=== PATIENT | female | born 1970 | race Caucasian/White ===

== ENCOUNTER 2020-05-09 15:30 | Emergency (ER) | payer BC, SELFPAY ==
[2020-05-09] VITALS (8 sets, daily range): BP systolic 116–151; BP diastolic 61–79; PULSE 63–98; RESP 16–30; TEMP 36.5; O2SAT 90–99; BMI 59.1
--- NOTE | 2020-05-09 16:27 | XR_ITS ---
WS: [id number] PORTABLE CHEST HISTORY: SOB, cough, COVID+ COMPARISON: 06/07/2018 and 05/09/2020 CT. Diffuse bilateral haziness and increasing opacifications. Slightly greater throughout the RIGHT lung and in the RIGHT lower lobe as compared to the prior study. No pleural effusion or pneumothorax. Cardiac size: Normal. Mediastinum/Aorta: Normal mediastinum. No osseous abnormality seen. XR/XR chest 1V portable [id number] IMPRESSION: Moderate diffuse interstitial thickening and opacifications greatest throughout the RIGHT lung. Consistent with history of Covid 19.
[2020-05-09 16:47] LABS: Basophils % 0.2 %; Hemoglobin 10.3 g/dL (11.5-15.3); Lymphocytes # 0.7 10^3/uL (0.8-4.8); Lymphocytes % 16.8 %; Mean Corpuscular HGB Conc 30.3 g/dL (30.0-36.0); Mean Corpuscular Volume 79.3 fL (81-99); Mean Platelet Volume 10.5 fL (7.4-10.4); Monocytes # 0.2 10^3/uL (0.2-0.9); Monocytes % 3.5 %; Neutrophils # 3.38 10^3/uL (1.8-7.7); Neutrophils % 78.8 %; Nucleated Red Blood Cells % 0 %; Platelet Count 274 10^3/cmm (130-400); Red Blood Count 4.29 10^6/uL (4.1-5.3); Red Cell Distribution Width 15.4 % (12.1-15.1); White Blood Count 4.3 10^3/uL (4.0-10.0)
[2020-05-09 17:10] LABS: Lactic Sepsis W/Reflex 0.7 mmol/L (0.5-2.2)
[2020-05-09 17:31] LABS: Alanine Aminotransferase 50 U/L (0-33); Albumin Level 3.3 g/dL (3.5-5.2); Alkaline Phosphatase 82 IU/L (35-105); Anion Gap 15.3 (5-19); Aspartate Amino Transferase 66 U/L (0-32); Blood Urea Nitrogen 8 mg/dL (6-20); C Reactive Protein 183.2 mg/L (0.0-4.9); Calcium 8.1 mg/dL (8.5-10.5); Carbon Dioxide 30 mmol/L (22-29); Chloride 94 mmol/L (98-107); Creatine Phosphokinase 179 U/L (26-192); Glomerular Filtration Rate 89.3 mL/min (90-130); Glucose 99 mg/dL (65-115); Osmolality Calculated 280 mOsm/kg (285-295); Potassium 3.3 mmol/L (3.5-5.1); Sodium 136 mmol/L (136-145); Total Bilirubin 0.3 mg/dL (0.15-1.2); Total Protein 7.3 g/dL (6.6-8.7)
[2020-05-09 17:52] LABS: INR 1.07 (0.8-1.2)
[2020-05-09 17:55] LABS: D Dimer 1.75 ug/mIFEU (0-0.59)
--- NOTE | 2020-05-09 17:58 | CTR_ITS ---
PROCEDURE INFORMATION: Exam: CT Angiography Chest With Contrast Exam date and time: 05/09/2020 7:07 PM Age: 50 years old Clinical indication: Shortness of breath; Additional info: Covid +, SOB TECHNIQUE: Imaging protocol: Computed tomographic angiography of the chest with contrast. 3D rendering (Not supervised by radiologist): MIP and/or 3D reconstructed images were created by the technologist. Radiation optimization: All CT scans at this facility use at least one of these dose optimization techniques: automated exposure control; mA and/or kV adjustment per patient size (includes targeted exams where dose is matched to clinical indication); or iterative reconstruction. Contrast material: OMNI 350; Contrast volume: 72 ml; Contrast route: INTRAVENOUS (IV); COMPARISON: CT chest wo con [id number] 12/25/2017 12:50 PM RADIATION DOSE METRICS: Total DLP (mGy-cm): 973.06 FINDINGS: Pulmonary arteries: Pulmonary artery evaluation is only diagnostic through the very proximal segmental pulmonary artery level secondary to quantum mottling artifact from large body habitus as well as suboptimal contrast bolus timing. Within the limitations of this examination, no pulmonary embolism is identified. Aorta: Unremarkable. No aortic aneurysm. No aortic dissection. Lungs: Patchy scattered irregular ground-glass opacities throughout both lungs. No focal obstructing endobronchial lesion. Scattered areas of mild septal thickening throughout the lungs noted. Pleural spaces: Unremarkable. No pneumothorax. No pleural effusion. Heart: Unremarkable. No cardiomegaly. No pericardial effusion. Lymph nodes: Unremarkable. No enlarged lymph nodes. Bones/joints: Unremarkable. No acute fracture. Soft tissues: Unremarkable. CT/CT angio chest PE protcl [id number] IMPRESSION: 1. Negative for pulmonary embolism. 2. Extensive ground-glass airspace disease in both lungs. 3. Imaging features can be seen with COVID-19 pneumonia, though are nonspecific and can occur with a variety of infectious and noninfectious processes. (Reference: Jim) REFERENCES: Jim Alicia, et al., Radiological Society of [place] Expert Consensus Statement on Reporting Chest CT Findings Related to COVID-19. Endorsed by the Society of Thoracic Radiology, the [employer], and RSNA. Published June 07, 2019. Radiation Dose CTDIVOL = (mGy): DLP = 973.06 (mGy-cm)
[2020-05-09 18:03] LABS: Ferritin 204 ng/mL (15-150)
[2020-05-09 18:18] LABS: Fibrinogen 731 mg/dL (174-498)
[2020-05-09] MEDS: iohexol 350 mg/mL 100 mL Btl IV (19:10)
--- NOTE | 2020-05-09 19:47 | ED_ITS ---
HPI - COVID General: Chief Complaint: COVID symptoms Stated Complaint: COVID complications Time Seen by Provider: 05/09/20 16:01 Source: patient Mode of arrival: ambulatory Limitations: no limitations Triage information: Has fever, cough or shortness of breath . Exposure to COVID + person last 14 days History of Present Illness: HPI Narrative: Patient is a 50-year-old female who has been feeling unwell for about 10 days now and got tested for Covid 4 days ago. Her Covid test came back positive. She is expressing worsening shortness of breath and generalized weakness. She still is running a fever intermittently, highest temperature that she has recorded is 101. She denies any nausea or vomiting. She is here to be evaluated. On arrival her oxygen saturations were in the high 80s and she was placed on 3 L of oxygen via nasal cannula to maintain her saturation above 90%. MD complaint: known COVID positive Prior covid testing: yes, results known COVID 19 common symptoms: positive fever(s), chills, cough, dyspnea, fatigue and body aches; negative headache(s), loss of sense of smell and/or taste, throat pain, nasal congestion, nausea, vomiting or diarrhea COVID 19 other sytmptoms: positive requiring oxygen; negative chest pressure, chest pain, pleuritic pain, respiratory distress, cyanosis, lethargy, confusion or new neurological complaints Onset (ago): day(s) (10) Severity: moderate Pertinent comorbid conditions: obesity COVID Results: No Data to Display Review of Systems General: Reports: 10 or more systems reviewed and unremarkable except in HPI and below Const: Reports: fever(s), chills, body aches and fatigue Eyes: Denies: change in vision or blurry vision ENMT: Denies: throat pain or nasal congestion Card: Denies: chest pain Resp: Reports: dyspnea GI: Denies: nausea, vomiting or diarrhea : Denies: flank pain, difficulty voiding, dysuria, urinary frequency, urinary urgency or urinary hesitancy Musc: Denies: neck pain, back pain or extremity swelling Skin/Breast: Denies: rash, pruritus or erythema Neuro: Denies: headache(s) or confusion Endo: Denies: polyuria, polydipsia or tired all the time PFS ED PFSH: Social History Smoking and tobacco status: never smoked Physical Exam Const: COMMON NORMALS: no acute distress, average body habitus, patient oriented x3, no limitations, healthy appearing, alert and well nourished HENMT: COMMON NORMALS: normocephalic, atraumatic and moist oral mucous membranes HEAD & SCALP: normocephalic and atraumatic Eye: COMMON NORMALS: Equal, round and reactive pupils present, EOMs intact bilaterally, conjunctivae normal and no scleral icterus CONJUNCTIVA: Yes conjunctivae normal PUPIL: Yes Equal, round and reactive pupils present Neck/C-Spine: COMMON NORMALS: no meningeal signs and no JVD Resp: COMMON NORMALS: normal respiratory effort, No retractions, No use of accessory muscles, clear to auscultation bilaterally and percussion normal AUSCULTATION: clear to auscultation bilaterally PERCUSSION: percussion normal Cardio: COMMON NORMALS: no JVD, regular rate, regular rhythm, S1 normal heart sound present, S2 normal heart sound present, No gallops present (Cardio), No clicks present (Cardio), No murmurs present (Cardio), No rub (Cardio) and Peripheral pulses 2+ throughout RATE: regular rate RHYTHM: regular rhythm HEART SOUNDS: S1 normal heart sound present and S2 normal heart sound present PERIPHERAL PULSES: Peripheral pulses 2+ throughout GI: COMMON NORMALS: Normal to inspection, nondistended, normoactive bowel sounds present, Soft to palpation, non-tender, No hepatosplenomegaly present, no masses and no bruits PALPATION: Yes Soft to palpation and Yes No hepatosplenomegaly present Extremity: COMMON NORMALS: normal to inspection, full ROM, capillary refill normal, no calf tenderness and no pedal edema Neuro: COMMON NORMALS: patient oriented x3 SENSORIUM/ORIENTATION: Yes alert MENINGEAL SIGNS: Yes no meningeal signs Skin: COMMON NORMALS: no rashes or lesions noted, no wounds, turgor normal, no jaundice, no petechiae and no mottling GENERAL SKIN EXAM: no rashes or lesions noted and turgor normal Course Vital Signs: Vital signs: Vital Signs Temperature 97.7 F 05/09/20 15:46 Pulse Rate 95 05/09/20 21:00 Respiratory Rate 25 H 05/09/20 21:00 Blood Pressure 146/78 05/09/20 21:00 Pulse Oximetry 95 05/09/20 21:00 MDM - COVID MDM Narrative: Medical decision making narrative: This 50-year-old female patient was recently diagnosed with COVID-19. She presents to the emergency department with shortness of breath and was noted to be hypoxic on arrival. She was placed on oxygen via nasal cannula and saturated well on that. Evaluation in the ED is unremarkable with normal white cell count however she has elevated acute phase reactants. CTA of her lungs was negative for PE. She however has pneumonia on x-ray and CT scan. Since she was able to maintain a saturation on 3 L, she is discharged home on home oxygen. She is given a dose of dexamethasone in the emergency department and discharged home with oral dexamethasone. She is strongly counseled to return for worsening symptoms and is to follow-up with her primary care provider. Medical Records: Attestation: I reviewed the patient's medical records. Lab Data: Attestation: I reviewed the patient's lab results. Labs: Lab Results 05/09/20 05/09/20 05/09/20 Range/Units 16:17 16:17 16:17 WBC 4.3 (4.0-10.0) 10^3/ uL RBC 4.29 (4.1-5.3) 10^6/u L Hgb 10.3 L (11.5-15.3) g/dL Hct 34.0 L (37.0-47.0) % MCV 79.3 L (81-99) fL MCH 24.0 L (28.0-34.0) pg MCHC 30.3 (30.0-36.0) g/dL RDW 15.4 H (12.1-15.1) % Plt Count 274 (130-400) 10^3/c mm MPV 10.5 H (7.4-10.4) fL Neut % (Auto) 78.8 % Lymph % (Auto) 16.8 % [place] % (Auto) 3.5 % Eos % (Auto) 0.0 % Baso % (Auto) 0.2 % Neut # (Auto) 3.38 (1.8-7.7) 10^3/u L Lymph # (Auto) 0.7 L (0.8-4.8) 10^3/u L [place] # (Auto) 0.2 (0.2-0.9) 10^3/u L Eos # (Auto) 0.0 (0.0-0.8) 10^3/u L Baso # (Auto) 0.0 (0.0-0.1) 10^3/u L Nucleated RBC % (a uto) 0 % Nucleated RBCs # 0.0 /100WBC PT 14.30 (12.1-14.9) SECO NDS INR 1.07 (0.8-1.2) Fibrinogen 731 H (174-498) mg/dL D-Dimer 1.75 H (0-0.59) ug/mIFE U Sodium 136 (136-145) mmol/L Potassium 3.3 L (3.5-5.1) mmol/L Chloride 94 L (98-107) mmol/L Carbon Dioxide 30 H (22-29) mmol/L Anion Gap 15.3 (5-19) BUN 8 (6-20) mg/dL Creatinine 0.7 (0.5-0.9) mg/dL GFR Calculation 89.3 L (90-130) mL/min Glucose 99 (65-115) mg/dL Calculated Osmolal ity 280 L (285-295) mOsm/k g Lactic Acid (0.5-2.2) mmol/L Calcium 8.1 L (8.5-10.5) mg/dL Ferritin 204 H (15-150) ng/mL Total Bilirubin 0.3 (0.15-1.2) mg/dL AST 66 H (0-32) U/L ALT 50 H (0-33) U/L Alkaline Phosphata se 82 (35-105) IU/L Creatine Kinase 179 (26-192) U/L C-Reactive Protein 183.2 H (0.0-4.9) mg/L Total Protein 7.3 (6.6-8.7) g/dL Albumin 3.3 L (3.5-5.2) g/dL Globulin 4.0 (1.3-4.6) g/dL Procalcitonin 0.10 (0-0.5) ng/mL 05/09/ Range/Units 16:17 WBC (4.0-10.0) 10^3/ uL RBC (4.1-5.3) 10^6/u L Hgb (11.5-15.3) g/dL Hct (37.0-47.0) % MCV (81-99) fL MCH (28.0-34.0) pg MCHC (30.0-36.0) g/dL RDW (12.1-15.1) % Plt Count (130-400) 10^3/c mm MPV (7.4-10.4) fL Neut % (Auto) % Lymph % (Auto) % [place] % (Auto) % Eos % (Auto) % Baso % (Auto) % Neut # (Auto) (1.8-7.7) 10^3/u L Lymph # (Auto) (0.8-4.8) 10^3/u L [place] # (Auto) (0.2-0.9) 10^3/u L Eos # (Auto) (0.0-0.8) 10^3/u L Baso # (Auto) (0.0-0.1) 10^3/u L Nucleated RBC % (a uto) % Nucleated RBCs # /100WBC PT (12.1-14.9) SECO NDS INR (0.8-1.2) Fibrinogen (174-498) mg/dL D-Dimer (0-0.59) ug/mIFE U Sodium (136-145) mmol/L Potassium (3.5-5.1) mmol/L Chloride (98-107) mmol/L Carbon Dioxide (22-29) mmol/L Anion Gap (5-19) BUN (6-20) mg/dL Creatinine (0.5-0.9) mg/dL GFR Calculation (90-130) mL/min Glucose (65-115) mg/dL Calculated Osmolal ity (285-295) mOsm/k g Lactic Acid 0.7 (0.5-2.2) mmol/L Calcium (8.5-10.5) mg/dL Ferritin (15-150) ng/mL Total Bilirubin (0.15-1.2) mg/dL AST (0-32) U/L ALT (0-33) U/L Alkaline Phosphata se (35-105) IU/L Creatine Kinase (26-192) U/L C-Reactive Protein (0.0-4.9) mg/L Total Protein (6.6-8.7) g/dL Albumin (3.5-5.2) g/dL Globulin (1.3-4.6) g/dL Procalcitonin (0-0.5) ng/mL Imaging Data: CTA Chest: Attestation: I personally reviewed and interpreted this imaging study as follows: Radiologist's impression: [address] [address] [address] Scan Report Signed Patient: Queenie Tapia #: [id number] : 1970Acct#:[id number] Age/Sex: 50 / FADM Date: 05/09/20 Loc: ERRoom/Bed: Attending Dr: Ordering Provider/Ordering MD: Frances Duran [place] [facility] [place] of Service: 05/09/20 Procedure(s): CT angio chest PE [facility] [address] Accession Number(s): [id number] Report Number: [id number] PROCEDURE INFORMATION: Exam: CT Angiography Chest With Contrast Exam date and time: 05/09/2020 7:07 PM Age: 50 years old Clinical indication: Shortness of breath; Additional info: Covid +, SOB TECHNIQUE: Imaging protocol: Computed tomographic angiography of the chest with contrast. 3D rendering (Not supervised by radiologist): MIP and/or 3D reconstructed images were created by the technologist. Radiation optimization: All CT scans at this facility use at least one of these dose optimization techniques: automated exposure control; mA and/or kV adjustment per patient size (includes targeted exams where dose is matched to clinical indication); or iterative reconstruction. Contrast material: OMNI 350; Contrast volume: 72 ml; Contrast route: INTRAVENOUS (IV); COMPARISON: CT chest [facility] [id number] 12/25/2017 12:50 PM RADIATION DOSE METRICS: Total DLP (mGy-cm): 973.06 FINDINGS: Pulmonary arteries: Pulmonary artery evaluation is only diagnostic through the very proximal segmental pulmonary artery level secondary to quantum mottling artifact from large body habitus as well as suboptimal contrast bolus timing. Within the limitations of this examination, no pulmonary embolism is identified. Aorta: Unremarkable. No aortic aneurysm. No aortic dissection. Lungs: Patchy scattered irregular ground-glass opacities throughout both lungs. No focal obstructing endobronchial lesion. Scattered areas of mild septal thickening throughout the lungs noted. Pleural spaces: Unremarkable. No pneumothorax. No pleural effusion. Heart: Unremarkable. No cardiomegaly. No pericardial effusion. Lymph nodes: Unremarkable. No enlarged lymph nodes. Bones/joints: Unremarkable. No acute fracture. Soft tissues: Unremarkable. CT/CT angio chest PE protcl [id number] IMPRESSION: 1. Negative for pulmonary embolism. 2. Extensive ground-glass airspace disease in both lungs. 3. Imaging features can be seen with COVID-19 pneumonia, though are nonspecific and can occur with a variety of infectious and noninfectious processes. (Reference: Jim) REFERENCES: Jim Alicia, et al., Radiological Society of [place] Expert Consensus Statement on Reporting Chest CT Findings Related to COVID-19. Endorsed by the Society of Thoracic Radiology, the [employer], and RSNA. Published June 07, 2019. Radiation Dose CTDIVOL = (mGy): DLP = 973.06 (mGy-cm) Dictated By:Andrew Deluca Signed By:Ingrid Deluca Date/Time:05/09/201924 DD/ 23 COVID Results: No Data to Display Monoclonal Antibody Treatments Inclusion/Exclusion Criteria weight >/= 40 kg and + direct Sars-Cov-2 test less than 7-10 days ago BMI >/= 35 not requiring hospitalization and needs oxygen (DO NOT GIVE) Plan for treatment Does not meet criteria (DO NOT GIVE) Discharge Plan Discharge Patient Disposition: Home Clinical Impression: Pneumonia due to 2019 novel coronavirus, Hypoxia Condition: Stable Prescriptions: New dexamethasone 6 mg tablet 6 mg PO DAILY Qty: 9 RF: 0 azithromycin 250 mg tablet See Rx Instructions .ROUTE .COMPLEX Qty: 6 RF: 0 Continued multivitamin Tablet 1 tab PO DAILY RF: 0 promethazine-DM 6.25-15 mg/5 mL syrup 5 - 10 ml PO Q6H RF: 0 Tylenol 325 mg Tablet 325 mg PO QID PRN (Reason: Pain) RF: 0 Vitamin C 500 mg Tablet 500 mg PO DAILY RF: 0 ibuprofen 200 mg Tablet 200 - 400 mg PO Q6H PRN (Reason: Pain) RF: 0 cetirizine 1 tab PO DAILY RF: 0 famotidine 20 mg PO DAILY RF: 0 Discharge Orders: Discharge ED (Routine); Ordered 05/09/20 Ordered By: Frances Duran Other Ambulatory Orders: DME: Oxygen (Order) Location: None Selected Ordered By: Frances Duran Discharge Diet: Usual diet Discharge Activity: Increase activity as tolerated Patient Instructions: Viral Pneumonia (ED) Activity Restrictions/Additional Instructions: Return for any new or worsening symptoms. Follow-up with your primary care provider within 3 days via telemedicine. Take the medications as prescribed. Use the oxygen all the time. If your oxygen levels fall below 90% even while on oxygen please return for evaluation. Coding Level of Care Code ED Slate Roofer Helper for Ej Edward
[2020-05-09] MEDS: cefTRIAXone 1,000 MG in sodium chloride 0.9% (plus) 50 ML 100 MG IV (19:55)
[2020-05-09] MEDS: dexamethasone 4 mg/mL INJ 6 MG IVP (19:56)
== END 2020-05-09 21:29 | disposition home or self-care (01) ==
PROVIDERS: Emergency Provider Family Medicine
DX: U07.1 COVID-19 (principal); J12.82 Pneumonia due to coronavirus disease 2019; R09.02 Hypoxemia
CPT/HCPCS: 36415; 71045; 71275; 80053; 82550; 82728; 83605; 84145; 85025; 85378; 85384; 85610; 86140; 87040; 87205; 96365; 96375; 99284; J0696; J1100; Q9967

== ENCOUNTER → 2020-06-14 08:46 | Outpatient (BNVA) | payer OTHER, SELFPAY | PROVIDERS: PCP Family Medicine; Visit Provider Family Medicine | DX: J12.89 Other viral pneumonia (principal); U07.1 COVID-19 | CPT/HCPCS: 71046; 80053; 85025 ==

== ENCOUNTER → 2020-07-25 08:31 | Outpatient (BNVA) | payer BC, SELFPAY | PROVIDERS: PCP Family Medicine; Visit Provider Family Medicine | DX: Z13.6 Encounter for screening for cardiovascular disorders (principal); R63.5 Abnormal weight gain | CPT/HCPCS: 80053; 80061; 83036; 84443 ==

== ENCOUNTER → 2020-08-02 10:07 | Outpatient (BNVA) | payer BC, SELFPAY | PROVIDERS: PCP Family Medicine; Visit Provider Family Medicine | DX: I10 Essential (primary) hypertension (principal); Z01.419 Encounter for gynecological examination (general) (routine) without abnormal findings; Z13.6 Encounter for screening for cardiovascular disorders; R73.03 Prediabetes; Z68.43 Body mass index [BMI] 50.0-59.9, adult | CPT/HCPCS: 80048; 88175 ==

== ENCOUNTER 2020-08-07 20:00 | Outpatient (CLI) | payer BC, SELFPAY | END 2020-08-07 20:01 | disposition home or self-care (01) | LOC: SLEEP 08-08 09:32 | PROVIDERS: PCP Family Medicine; Visit Provider Family Medicine | DX: R06.83 Snoring (principal); R53.83 Other fatigue; G47.33 Obstructive sleep apnea (adult) (pediatric) | CPT/HCPCS: 95810 ==

== ENCOUNTER → 2020-09-06 11:24 | Outpatient (BNVA) | payer BC, SELFPAY | PROVIDERS: PCP Family Medicine; Visit Provider Family Medicine | DX: G47.33 Obstructive sleep apnea (adult) (pediatric) (principal); R60.0 Localized edema; I10 Essential (primary) hypertension; Z68.43 Body mass index [BMI] 50.0-59.9, adult | CPT/HCPCS: 80048 ==

== ENCOUNTER 2020-09-11 07:42 | Outpatient (CLI) | payer BC, SELFPAY ==
--- NOTE | 2020-09-11 08:00 | MM_ITS ---
WS: [id number] BILATERAL SCREENING DIGITAL MAMMOGRAM WITH CAD HISTORY: screening mammogram COMPARISON: None available. Bilateral CC and MLO views submitted. Computer aided detection analyzed. Breast composition: There are scattered areas of fibroglandular density. No suspicious masses, microc alcifications or architectural distortion. There are a few scattered benign calcifications within eac h breast. MM/[place] [id number] IMPRESSION: BI-RADS: 2-Benign FOLLOW UP: 1 Year Follow-up
== END 2020-09-11 07:43 | disposition home or self-care (01) ==
LOC: RADSHAW 07:46
PROVIDERS: PCP Family Medicine; Visit Provider Family Medicine
DX: Z12.31 Encounter for screening mammogram for malignant neoplasm of breast (principal)
CPT/HCPCS: 77067

== ENCOUNTER → 2020-10-28 10:11 | Outpatient (BNVA) | payer BC, SELFPAY | PROVIDERS: PCP Family Medicine; Visit Provider Nurse Practitioner Family | DX: J06.9 Acute upper respiratory infection, unspecified (principal); Z20.822 Contact with and (suspected) exposure to COVID-19; R43.0 Anosmia | CPT/HCPCS: 87635 ==

== ENCOUNTER → 2020-11-08 09:51 | Outpatient (BNVA) | payer BC, SELFPAY | PROVIDERS: PCP Family Medicine; Visit Provider Family Medicine | DX: N92.0 Excessive and frequent menstruation with regular cycle (principal); R73.03 Prediabetes | CPT/HCPCS: 80053; 83036 ==

== ENCOUNTER → 2020-12-10 16:07 | Outpatient (BNVA) | payer BC, SELFPAY | PROVIDERS: PCP Family Medicine; Visit Provider Nurse Practitioner | DX: J02.9 Acute pharyngitis, unspecified (principal) | CPT/HCPCS: 87880 ==

== ENCOUNTER → 2020-12-20 08:38 | Outpatient (BNVA) | payer BC, SELFPAY | PROVIDERS: PCP Family Medicine; Visit Provider Family Medicine | DX: N92.0 Excessive and frequent menstruation with regular cycle (principal); R73.03 Prediabetes; I10 Essential (primary) hypertension | CPT/HCPCS: 82728; 83550; 85025 ==

== ENCOUNTER 2020-12-31 06:58 | Outpatient (CLI) | payer BC, SELFPAY ==
--- NOTE | 2020-12-31 07:15 | US_ITS ---
WS: [id number] ULTRASOUND PELVIS TECHNIQUE: Transabdominal and transvaginal. ULTRASOUND PELVIS TECHNIQUE: Transabdominal. CLINICAL INFORMATION: menorrhagia LMP: : No. COMPARISON: None. FINDINGS: Technically difficult examination due to body habitus Fibroid uterus. Orientation: Anteverted. Size: 10.5 cm x 7.0 cm x 5.1 cm. Masses: Multiple intramural fibroids. Cervix: Not well evaluated Endometrium: Not well evaluated due to fibroids. Adnexa: Ovaries not visualized. No adnexal masses. Free fluid: None. Other findings: None. US/US pelvic with transvaginal IMPRESSION: Technically difficult examination due to body habitus. Limited stud y. 1. Fibroid uterus measuring 10.5 x 5.1 x 7.0 CM. 2. Endometrium not well evaluated due to fibroids. 3. Neither ovary is visualized. No adnexal masses. 4. Largest fibroid measures 3.0 x 3.1 x 2.0 CM.
== END 2020-12-31 06:59 | disposition home or self-care (01) ==
PROVIDERS: PCP Family Medicine; Visit Provider Family Medicine
DX: N92.0 Excessive and frequent menstruation with regular cycle (principal); D25.9 Leiomyoma of uterus, unspecified
CPT/HCPCS: 76830; 76856

== ENCOUNTER 2021-01-22 15:33 | Day surgery (SDC) | payer BC, SELFPAY ==
--- NOTE | 2021-01-22 15:58 | XRR_ITS ---
PROCEDURE INFORMATION: Exam: XR Soft Tissue Neck Exam date and time: 01/22/2021 3:58 PM Age: 50 years old Clinical indication: Other: Fb/food; Additional info: Poss food bolus TECHNIQUE: Imaging protocol: XR of the soft tissues of the neck. Total images: 3 COMPARISON: CR Neck Soft Tissue [id number] 08/19/2014 5:56 PM FINDINGS: Airway: Motion artifact. Airway appears grossly patent. Soft tissues: Grossly unremarkable. No grossly visible radiopaque foreign body Bones/joints: Unremarkable. XR/XR soft tissue neck [id number] IMPRESSION: Grossly unremarkable. Radiation Dose CTDIVOL = (mGy): DLP = (mGy-cm)
--- NOTE | 2021-01-22 15:58 | XRR_ITS ---
PROCEDURE INFORMATION: Exam: XR Chest Exam date and time: 01/22/2021 3:58 PM Age: 50 years old Clinical indication: Other: Fb/food; Additional info: Poss food bolus TECHNIQUE: Imaging protocol: XR of the chest. Views: 1 view. Total images: 1 COMPARISON: CR XR chest 2V* [id number] 06/14/2020 8:49 AM FINDINGS: Lungs: No visible active interstitial or alveolar airspace disease. Pleural spaces: Unremarkable. No pleural effusion. No pneumothorax. Heart/Mediastinum: Cardiac structures and configuration within normal limits. Bones/joints: Unremarkable. Other findings: Obesity. XR/XR chest 1V portable [id number] IMPRESSION: Nonacute. Radiation Dose CTDIVOL = (mGy): DLP = (mGy-cm)
[2021-01-22 16:38] VITALS: BP 143/87; PULSE 98; RESP 18; TEMP 36.7; O2SAT 98; BMI 57.9
--- NOTE | 2021-01-22 17:53 | PC.NURSE ---
PATIENT PRESENTS TO THE ED WITH A CHIEF COMPLAINT OF A FOREIGN BODY IN THROAT. PATIENT STATES THAT SHE CHOKED ON HER FOOD LAST NIGHT AND STILL FEELS LIKE THEIR IS SOMETHING IN HER THROAT. PATIENT STATES THAT SHE HAS TRIED TO INGEST FOOD, BUT NOTHING STAYS DOWN. PATIENT STATES IT GETS TO THROAT AND THEN COMES BACK UP. PATIENT DOES HAVE EMESIS BASIN AT TABLE SIDE. WHITE AND CLEAR FLUID ARE IN THE CONTAINER. PATIENT PRESENTS WITH PATENT AIRWAY, UNLABORED RESPIRATIONS, AND APPROPRIATE COLOR.
--- NOTE | 2021-01-22 18:10 | ED_ITS ---
HPI - General Adult General: Chief complaint: Airway/Esophagus Foreign Body Stated complaint: STATES FOOD BOLUS Time Seen by Provider: 01/22/21 18:02 Source: patient Mode of arrival: ambulatory Limitations: no limitations History of Present Illness: HPI narrative: 50-year-old female states she was eating chicken last night states that time she does not chew well and has difficulty with food boluses. She states that she typically gets in the past but she not minimal had this 1 past 24 hours she tried drinking liquids and states she just vomits it back up still has a sensation of a foreign body in her esophagus. States she did have an EGD roughly 5 years ago denies any other issues denies vomiting any blood. Associated symptoms: Deny chest pain, dyspnea, headache(s), nausea, rash or vomiting Review of Systems Const: Denies: fever(s), chills, body aches or change in appetite Eyes: Denies: blurry vision or eye discomfort ENMT: Denies: throat pain or dental pain Card: Denies: chest pain Resp: Denies: dyspnea GI: Denies: abdominal pain, nausea, vomiting or diarrhea : Denies: dysuria Musc: Denies: neck pain or back pain Skin/Breast: Denies: rash Neuro: Denies: headache(s) Psych: Denies: depression Emre/Lymph: Denies: easy bruising All/Imm: Denies: urticaria PFSH ED PFSH: Medical History Hidradenitis suppurativa History of COVID-19 Prediabetes Surgical History H/O tubal ligation History of tonsillectomy and adenoidectomy Family History Other Cancer Glaucoma Lupus Thyroid condition Social History Smoking and tobacco status: never smoked Alcohol intake: current Alcohol intake frequency: few times a month Physical Exam Const: COMMON NORMALS: no acute distress, patient oriented x3 and healthy appearing HENMT: COMMON NORMALS: normocephalic and atraumatic HEAD & SCALP: normocephalic and atraumatic Eye: COMMON NORMALS: Equal, round and reactive pupils present and EOMs intact bilaterally PUPIL: Yes Equal, round and reactive pupils present Neck/C-Spine: COMMON NORMALS: full ROM and supple Chest: COMMONS NORMALS: normal inspection of the chest and normal palpation of entire chest wall Resp: COMMON NORMALS: normal respiratory effort, No retractions, No use of accessory muscles and clear to auscultation bilaterally AUSCULTATION: clear to auscultation bilaterally Cardio: COMMON NORMALS: regular rate, regular rhythm and No murmurs present (Cardio) RATE: regular rate RHYTHM: regular rhythm GI: COMMON NORMALS: Normal to inspection, nondistended, normoactive bowel sounds present, Soft to palpation, non-tender and no masses PALPATION: Yes Soft to palpation Extremity: COMMON NORMALS: normal to inspection and full ROM Neuro: COMMON NORMALS: patient oriented x3, moves all extremities and no focal motor deficits Psych: COMMON NORMALS: mental status grossly normal, Normal thought process present and cooperative THOUGHT PROCESS: Normal thought process present Skin: COMMON NORMALS: no rashes or lesions noted and no wounds GENERAL SKIN EXAM: no rashes or lesions noted Course Vital Signs: Vital signs: Vital Signs Temperature 98.1 F 01/22/21 16:38 Pulse Rate 98 01/22/21 16:38 Respiratory Rate 18 01/22/21 16:38 Blood Pressure 143/87 01/22/21 16:38 Pulse Oximetry 98 01/22/21 16:38 MDM - General Adult MDM Narrative: Medical decision making narrative: Patient presents here with an esophageal food bolus spoke to Dr. Goodrich is going to take to the GI lab to treat. Discharge Plan Discharge Patient Disposition: Admitted As Inpatient Clinical Impression: Esophageal obstruction due to food impaction Condition: Stable Prescriptions: No Action clindamycin phos-skin clnsr 19 1 % kit topical .QD WITH FLARES RF: 0 vitamin B complex Tablet 1 tab PO DAILY RF: 0 albuterol sulfate [Ventolin HFA] 90 mcg/actuation HFA aerosol inhaler 2 puff inhalation Q6H PRN (Reason: shortness of breath or wheezing) Qty: 8.5 RF: 0 lisinopril 10 mg tablet 10 mg PO DAILY Qty: 90 RF: 1 furosemide 20 mg tablet 20 mg PO QAM Qty: 90 RF: 1 metformin 500 mg tablet extended release 24 hr 500 mg PO DAILY Qty: 90 RF: 1 multivitamin Tablet 1 tab PO DAILY RF: 0 Tylenol 325 mg Tablet 325 mg PO QID PRN (Reason: Pain) RF: 0 Vitamin C 500 mg Tablet 500 mg PO DAILY RF: 0 ibuprofen 200 mg Tablet 200 - 400 mg PO Q6H PRN (Reason: Pain) RF: 0 famotidine 20 mg PO DAILY RF: 0 Referrals: Leona Colin DO [Primary Care Provider] - Coding Level of Care Code ED Bending Machine Set Up Operator for Ej Edward
--- NOTE | 2021-01-22 18:20 | P.HP_ITS ---
Providers/Chief Complaint Admitting Physician: Niles Goodrich MD Primary Care Provider: Leona Colin DO Chief Complaint: STATES FOOD BOLUS History of Present Illness Ms. Queenie Tapia is a pleasant 50 year old female morbidly obese patient with current weight of 317 pounds and a BMI 58, apparently the patient had dinner yesterday in the form of chicken and ham and since then she felt that something got stuck. She was able to expel portion of it but overnight and through the d ay it just got worse and she is not able to keep anything down. She denies any hematemesis or hemoptysis. She reports that she does not have dentures and she did have this problem before about 10 years ago and she was told that she has some sort of pathology in her upper esophagus. Patient comes to the ER for further work-up and she did undergo x-rays of the neck and chest that per my interpretation did not show any abnormal findings. No evidence of pneumomediastinum. General surgery was consulted for further evaluation and potential intervention. Patient was seen and evaluated in the vertical flow area of the emergency department Review of Systems General: Reports: 10 or more systems reviewed and unremarkable except in HPI and below Medications/Allergies Home Medications Medication Instructions Recorded Confirmed Last Taken Type Tylenol 325 mg PO QID PRN 05/09/20 12/20/20 05/08/20 History Vitamin C 500 mg PO DAILY 05/09/20 12/20/20 Unknown History famotidine 20 mg PO DAILY 05/09/20 12/20/20 Unknown History ibuprofen 200 - 400 mg PO Q6H PRN 05/09/20 12/20/20 05/09/20 History multivitamin 1 tab PO DAILY 05/09/20 12/20/20 Unknown History clindamycin phosphate-skin ea TOPICAL .QD WITH FLARES ea 07/11/20 12/20/20 Unknown History cleanser combo no.19 1 % topical kit furosemide 20 mg tablet 20 mg PO QAM #90 tab 09/06/20 12/20/20 Unknown Rx lisinopril 10 mg tablet 10 mg PO DAILY #90 tab 09/06/20 12/20/20 Unknown Rx metformin 500 mg tablet,extended 500 mg PO DAILY #90 tab 09/06/20 12/20/20 Unknown Rx release 24 hr albuterol sulfate 90 mcg/actuation 2 puff INHALATION Q6H PRN #8.5 g 12/10/20 12/20/20 Unknown Rx aerosol inhaler vitamin B complex 1 tab PO DAILY 12/20/20 12/20/20 Unknown History Allergies Allergy/AdvReac Type Severity Reaction Status Date / Time No Known Allergies Allergy Verified 01/22/21 18:29 PFSH Acute PFSH: Medical History Hidradenitis suppurativa History of COVID-19 Prediabetes Surgical History H/O tubal ligation History of tonsillectomy and adenoidectomy Family History Other Cancer Glaucoma Lupus Thyroid condition Social History Smoking and tobacco status: never smoked Alcohol intake: current Alcohol intake frequency: few times a month Vitals/I&O/Wt Last Vital Signs Temp 98.1 F 01/22/21 16:38 Pulse 98 01/22/21 16:38 Resp 18 01/22/21 16:38 BP 143/87 01/22/21 16:38 Pulse Ox 98 01/22/21 16:38 Weight last 48 hrs Weight 317 lb Physical Exam Const: COMMON NORMALS: no acute distress and patient oriented x3 GENERAL APPEARANCE: cooperative ORIENTATION/CONSCIOUSNESS: Yes awake, Yes oriented to person, Yes oriented to place and Yes oriented to time HENMT: COMMON NORMALS: normocephalic HEAD & SCALP: normocephalic Eye: COMMON NORMALS: Equal, round and reactive pupils present and no scleral icterus PUPIL: Yes Equal, round and reactive pupils present Neck/C-Spine: NECK IMAGES: 1. No evidence of crepitus or surgical emphysema or distinct tenderness. No mediastinal shift. Lymph: LYMPHATIC: no lymphadenopathy noted Chest: COMMONS NORMALS: normal inspection of the chest Resp: COMMON NORMALS: normal respiratory effort and clear to auscultation bilaterally AUSCULTATION: clear to auscultation bilaterally Cardio: COMMON NORMALS: S1 normal heart sound present and S2 normal heart sound present; negative for No murmurs present (Cardio) HEART SOUNDS: S1 normal heart sound present and S2 normal heart sound present GI: COMMON NORMALS: Soft to palpation; negative for No hepatosplenomegaly present INSPECTION: Yes normal to inspection PALPATION: Yes Soft to palpation, No Firmness to palpation present (GI), No Tenderness to palpation present (GI), No Guarding due to palpation present (GI), No Rigid due to palpation and No No hepatosplenomegaly present Neuro: COMMON NORMALS: patient oriented x3 SENSORIUM/ORIENTATION: Yes oriented to person, Yes oriented to place and Yes oriented to time Psych: COMMON NORMALS: mental status grossly normal Skin: COMMON NORMALS: no rashes or lesions noted GENERAL SKIN EXAM: no rashes or lesions noted A&P Assessment and plan (1) Esophageal obstruction due to food impaction: Plan of care; After thorough history and physical examination and reviewing the chart, plan to perform a diagnostic esophagogastroduodenoscopy with possible food disimpaction. I discussed with the patient in detail the risk,benefits,alternatives and indications.The risk of aspiration, bleeding, soft tissue injury, perforation of the stomach/esophagus and other potential concomitant complications were explained to the patient in details,aslo the potential need for Thoracic and or Abdominal surgery to repair any complications.The patient understood this well and did agree to proceed. Rationale was carefully and clearly discussed with the patient.Appropriate informed consent have been reviewed and signed All questions have been answered and all concerns have been addressed to patient 's satisfaction. Status: Acute Attestations Medical Necessity Statement*: Outpatient in a bed Time Spent in Patient Care: (>than 50% of time spent in counselling and/or direct pt care on unit) . 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
--- NOTE | 2021-01-22 18:34 | ANES.PREANE2 ---
Pre-Anesthetic Assessment Pre-Anesthetic Assessment: Height/Weight: Height 1.57 m Weight 143.789 kg Temp Pulse Resp BP Pulse Ox 98.1 F 98 18 143/87 98 01/22/21 16:38 01/22/21 16:38 01/22/21 16:38 01/22/21 16:38 01/22/21 16:38 Preop Diagnosis: food bolus Proposed Procedure: EGD Familial anesthetic complications: None Last intake: > 8 hrs Social: Social History: No alcohol and No tobacco Comment: former smokre Exam: Pre-Anes Outpt Exam: alert, oriented x 3, clear to auscultation bilaterally and regular rate & rhythm Airway: MP: 4 Dentition: Other (couple missing teeth) Pulmonary: Pulmonary: Sleep apnea CV/HEM: CV/HEM: HTN Metabolic: Metabolic: DM (pre-DM) and Morbid obesity Anesthetic Plan: ASA status: 3 Anesthesia: General Risk of > 500 ml blood loss (7ml/kg in children): No PFSH Anesthesia PFSH: Medical History Hidradenitis suppurativa History of COVID-19 Prediabetes Surgical History H/O tubal ligation History of tonsillectomy and adenoidectomy Family History Other Cancer Glaucoma Lupus Thyroid condition Social History Smoking and tobacco status: never smoked Alcohol intake: current Alcohol intake frequency: few times a month Data Anesthesia Cardiac Studies: No Data to Display
[2021-01-22] MEDS: sodium chloride 0.9% 1,000 ML 30 ML IV (19:01)
[2021-01-22 19:23] VITALS: BP 148/78; PULSE 84; RESP 16; TEMP 36.4; O2SAT 98
[2021-01-22 19:25] VITALS: BP 138/64; PULSE 80; RESP 16; O2SAT 100
--- NOTE | 2021-01-22 19:27 | P.PCN_ITS ---
PACU note PACU note: VSS, Good respiratory effort, report to CRYPTOZOOLOGIST Post-Anesthesia Exam: awake
--- NOTE | 2021-01-22 19:27 | PM.PACU ---
PACU note PACU note: VSS, Good respiratory effort, report to FLYING I INSTRUCTOR Post-Anesthesia Exam: awake
[2021-01-22 19:30] VITALS: BP 145/72; PULSE 80; RESP 16; TEMP 36.9; O2SAT 94
[2021-01-22 19:32] VITALS: BP 148/76; PULSE 79; RESP 17; TEMP 36.8; O2SAT 93
[2021-01-22 19:42] VITALS: BP 133/64; PULSE 77; RESP 18; O2SAT 92
== END 2021-01-22 20:05 | disposition home or self-care (01) ==
LOC: ER 18:14 → GILAB 19:32
PROVIDERS: Emergency Provider Emergency Medicine; PCP Family Medicine; Visit Provider Surgery
PROC: 0DJ08ZZ Inspection of Upper Intestinal Tract, Via Natural or Artificial Opening Endoscopic (ICD-10-PCS; CPT 43235; principal; 2021-01-22 19:00)
DX: T18.128A Food in esophagus causing other injury, initial encounter (principal); X58.XXXA Exposure to other specified factors, initial encounter; K21.00 Gastro-esophageal reflux disease with esophagitis, without bleeding; K29.70 Gastritis, unspecified, without bleeding; I10 Essential (primary) hypertension; G47.30 Sleep apnea, unspecified; R73.03 Prediabetes; E66.01 Morbid (severe) obesity due to excess calories; Z68.43 Body mass index [BMI] 50.0-59.9, adult; Z79.84 Long term (current) use of oral hypoglycemic drugs; Z87.891 Personal history of nicotine dependence; Z86.16 Personal history of COVID-19; Z80.9 Family history of malignant neoplasm, unspecified
CPT/HCPCS: 43247; 70360; 71045; 96360; J0330; J2704; J3010; J7030

== ENCOUNTER → 2021-01-31 10:25 | Outpatient (BNVA) | payer BC, SELFPAY | PROVIDERS: PCP Family Medicine; Visit Provider Obstetrics & Gynecology | DX: D25.9 Leiomyoma of uterus, unspecified (principal) | CPT/HCPCS: 88305 ==

== ENCOUNTER → 2021-04-01 08:51 | Outpatient (BNVA) | payer BC, SELFPAY | PROVIDERS: PCP Family Medicine; Visit Provider Family Medicine | DX: R73.03 Prediabetes (principal) | CPT/HCPCS: 80053; 83036 ==

== ENCOUNTER 2021-05-02 10:51 | Day surgery (SDC) | payer BC, SELFPAY ==
[2021-05-02] VITALS (10 sets, daily range): BP systolic 117–158; BP diastolic 65–93; PULSE 80–85; RESP 16–18; TEMP 37.1–37.6; O2SAT 94–99; BMI 56.7
--- NOTE | 2021-05-02 11:29 | PC.NURSE ---
PATIENT PRESENTS TO THE ED WITH A CHIEF COMPLAINT OF OBSTRUCTION OF THE AIRWAY. PATIENT STATES THAT SHE DIDN'T CHOKE ON ANY FOOD, BUT SHE FEELS LIKE SOMETHING IS STUCK IN HER THROAT. PATIENT BELIEVES IT IS STEAK. PATIENT SAYS SHE CANNOT KEEP ANY FOOD OR DRINK DOWN. PATIENT ALSO HAS A HEADACHE. PATIENT PRESENTS WITH PATENT AIRWAY, UNLABORED RESPIRATIONS, AND APPROPRIATE COLOR.
--- NOTE | 2021-05-02 12:19 | ED_ITS ---
HPI - General Adult General: Chief complaint: Airway/Esophagus Foreign Body Stated complaint: Feels something stuck in throat believes its food Time Seen by Provider: 05/02/21 11:24 History of Present Illness: Patient comes in complaining of a food bolus in her esophagus. States that 2 nights ago she was eating steak when she felt like a piece got stuck. States that since then she has been unable to keep down liquids or solids. States that if she drinks anything she will throw it up within a couple minutes. Denies any pain or other symptoms at this time. Associated symptoms: Deny chest pain, dyspnea, headache(s), nausea, rash, palpitations or vomiting Review of Systems Const: Denies: fever(s) or body aches Eyes: Denies: change in vision or blurry vision ENMT: Denies: throat pain or odynophagia Card: Denies: chest pain or palpitations Resp: Denies: dyspnea or productive cough GI: Reports: other (Esophageal foreign body); Denies: abdominal pain, nausea or vomiting : Denies: flank pain or dysuria Musc: Denies: neck pain or back pain Skin/Breast: Denies: rash or pruritus Neuro: Denies: headache(s) or numbness in extremities Psych: Denies: anxiety or change in appetite Endo: Denies: polyuria or excessive sweating PFSH ED PFSH: Medical History (Updated 05/02/21 @ 16:31 by Eric Magallanes MD) Esophageal obstruction due to food impaction Hidradenitis suppurativa History of COVID-19 Leiomyoma of uterus Prediabetes Surgical History H/O tubal ligation History of tonsillectomy and adenoidectomy S/P laparoscopic hysterectomy Mar 2021 Family History Daughter Bleeding disorder lupus Father Cancer esophageal Mother Cancer skin Breast cancer Thyroid condition Family/Other Breast cancer Maternal aunt Grandfather Stroke Paternal Other Glaucoma Lupus Denies family history of Diabetes CAD (coronary artery disease) Clotting disorder Hyperlipidemia Chronic kidney disease (CKD) Hypertension Social History Smoking and tobacco status: former smoker Alcohol intake: current Alcohol intake frequency: few times a month Physical Exam Const: COMMON NORMALS: no acute distress, patient oriented x3, healthy appearing and alert HENMT: COMMON NORMALS: normocephalic and atraumatic HEAD & SCALP: normocep halic and atraumatic Eye: COMMON NORMALS: Equal, round and reactive pupils present and EOMs intact bilaterally PUPIL: Yes Equal, round and reactive pupils present Neck/C-Spine: COMMON NORMALS: full ROM and supple Resp: COMMON NORMALS: normal respiratory effort, No retractions and No use of accessory muscles Cardio: COMMON NORMALS: regular rate and regular rhythm RATE: regular rate RHYTHM: regular rhythm GI: COMMON NORMALS: Normal to inspection, nondistended, normoactive bowel sounds present, Soft to palpation and non-tender PALPATION: Yes Soft to palpation Back/Pelvis: COMMON NORMALS: thoracic and lumbar spine normal to inspection and no thoracic nor lumbar tenderness Extremity: COMMON NORMALS: normal to inspection and full ROM Neuro: COMMON NORMALS: patient oriented x3 SENSORIUM/ORIENTATION: Yes alert Psych: COMMON NORMALS: mental status grossly normal and cooperative Skin: COMMON NORMALS: no rashes or lesions noted and no wounds GENERAL SKIN EXAM: no rashes or lesions noted Course Vital Signs: Vital signs: Vital Signs Temperature 98.7 F 05/02/21 16:00 Pulse Rate 80 05/02/21 16:00 Respiratory Rate 18 05/02/21 16:00 Blood Pressure 153/78 05/02/21 16:00 Pulse Oximetry 98 05/02/21 16:00 MDM - General Adult Medical Decision Making Patient comes in complaining of a food bolus in her esophagus. States that 2 nights ago she was eating steak when she felt like a piece got stuck. States that since then she has been unable to keep down liquids or solids. States that if she drinks anything she will throw it up within a couple minutes. Denies any pain or other symptoms at this time. Physical exam is unremarkable. Will consult GI and reassess. I discussed the case with gastroenterology and they will come see the patient here in the emergency department. GI took the patient for endoscopy. 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
--- NOTE | 2021-05-02 13:00 | PC.NURSE ---
CALLED AND SPOKE WITH TIFFANY BAEZ IN GI. MEDICATION ORDERS FOR PATIENT ARE FOR GI AND DO NOT NEED TO BE ADMINISTERED UNTIL SHE HAS MOVED TO GI CARE.
--- NOTE | 2021-05-02 14:25 | P.ANESASSM_ITS ---
Pre-Anesthetic Assessment Height/Weight: Height 1.57 m Weight 140.614 kg Temp Pulse Resp BP Pulse Ox 98.7 F 82 18 158/93 97 05/02/21 11:29 05/02/21 11:29 05/02/21 11:29 05/02/21 11:29 05/02/21 11:29 Preop Diagnosis: Food impaction Operation Date: 05/02/21 15:30 Proposed Procedures p EGD WITH POSSIBLE DISIMPACTION OF FOOD BOLUS(Not Applicable) - Pramod Jones MD Familial anesthetic complications: None Was Beta Cyndee taken within 24 hours: N/A Was Clonidine taken within 24 hours: N/A Last intake: 05/01/ No alcohol and No tobacco Exam alert, oriented x 3, clear to auscultation bilaterally and regular rate & rhythm Airway Submandibular: within normal limits Cervical ROM: within normal limits Mallampati: Class III Dentition: full Pulmonary None reported CV/HEM Hypertension None reported Hepatic None reported GI None reported Metabolic Morbid Obesity Pre diabetes [facility] [place] None reported Neuropsych None reported Anesthetic Plan ASA status: 3E Anesthesia: Anesthesia Evaluation and General Other: We discussed risk and benefits of general anesthesia including PONV, sore throat (sometimes severe), corneal abrasion, positioning and peripheral nerve injuries, life threatening allergic reaction, post operative ICU admission requiring prolonged intubation, stroke, heart attack, , and rare incidences of recall. Patient consents to proceed with general anesthesia. Risk of > 500 ml blood loss (7ml/kg in children): No Medications/Allergies Home Medications Medication Instructions Recorded Confirmed Last Taken Type acetaminophen 325 mg tablet 325 mg PO QID PRN 05/09/20 05/02/21 05/08/20 History (Tylenol) ascorbic acid (vitamin C) 500 mg 500 mg PO QAM 05/09/20 05/02/21 Unknown History tablet (Vitamin C) ibuprofen 200 mg tablet 200 - 400 mg PO Q6H PRN 05/09/20 05/02/21 05/09/20 History multivitamin 1 tab PO QAM 05/09/20 05/02/21 Unknown History clindamycin phosphate-skin 1 ea TOPICAL DAILY PRN ea 07/11/20 05/02/21 Unknown History cleanser combo no.19 1 % topical kit albuterol sulfate 90 mcg/actuation 2 puff INHALATION Q6H PRN #8.5 g 12/10/20 05/02/21 Unknown Rx aerosol inhaler (Ventolin HFA) ferrous sulfate 325 mg (65 mg 325 mg PO QAM 01/31/21 05/02/21 04/30/21 History iron) tablet furosemide 20 mg tablet 20 mg PO QAM #90 tab 04/02/21 05/02/21 04/30/21 Rx clindamycin HCl 300 mg capsule 300 mg PO TID PRN 05/02/21 05/02/21 Unknown History famotidine 20 mg tablet 20 mg PO QAM 05/02/21 05/02/21 04/30/21 History lisinopril 10 mg tablet 10 mg PO QAM 05/02/21 05/02/21 04/30/21 History metformin 500 mg tablet,extended 500 mg PO BEDTIME 05/02/21 05/02/21 04/30/21 History release 24 hr Allergies Allergy/AdvReac Type Severity Reaction Status Date / Time elizabeth Allergy Mild unknown Verified 05/02/21 11:04 [facility] Anesthesia Medical History Hidradenitis suppurativa History of COVID-19 Leiomyoma of uterus Prediabetes Surgical History H/O tubal ligation History of tonsillectomy and adenoidectomy S/P laparoscopic hysterectomy Mar 2021 Family History Daughter Bleeding disorder lupus Father Cancer esophageal Mother Cancer skin Breast cancer Thyroid condition Family/Other Breast cancer Maternal aunt Grandfather Stroke Paternal Other Glaucoma Lupus Denies family history of Diabetes CAD (coronary artery disease) Clotting disorder Hyperlipidemia Chronic kidney disease (CKD) Hypertension Social History Smoking and tobacco status: former smoker Alcohol intake: current Alcohol intake frequency: few times a month Data Anesthesia Cardiac Studies: No Data to Display
[2021-05-02] MEDS: sodium chloride 0.9% 1,000 ML 30 ML IV (15:16)
--- NOTE | 2021-05-02 15:37 | P.CONIM_ITS ---
Providers/Reason For Consult Consulting Physician/Specialty*: ER Reason for Consult*: Esophageal obstruction due to food impaction Attending Physician: Pramod Jones MD Primary Care Provider: Leona Colin DO History of Present Illness History of Present Illness Queenie Tapia is a 51 year old female who had undergone disimpaction of food bolus on 01/22/2021. There is no evidence of stricture noted at that point. Patient presents to the ER today after she felt a piece of meat getting stuck in her throat day before yesterday night. She had some important doctors appointments in [place] and therefore she did not present to the ER yesterday. She denies any chest pain or abdominal pain. Denies any hematemesis. She is unable to swallow any saliva or keep liquids down. Medications/Allergies Home Medications Medication Instructions Recorded Confirmed Last Taken Type acetaminophen 325 mg tablet 325 mg PO QID PRN 05/09/20 05/02/21 05/08/20 History (Tylenol) ascorbic acid (vitamin C) 500 mg 500 mg PO QAM 05/09/20 05/02/21 Unknown History tablet (Vitamin C) ibuprofen 200 mg tablet 200 - 400 mg PO Q6H PRN 05/09/20 05/02/21 05/09/20 History multivitamin 1 tab PO QAM 05/09/20 05/02/21 Unknown History clindamycin phosphate-skin 1 ea TOPICAL DAILY PRN ea 07/11/20 05/02/21 Unknown History cleanser combo no.19 1 % topical kit albuterol sulfate 90 mcg/actuation 2 puff INHALATION Q6H PRN #8.5 g 12/10/20 05/02/21 Unknown Rx aerosol inhaler (Ventolin HFA) ferrous sulfate 325 mg (65 mg 325 mg PO QAM 01/31/21 05/02/21 04/30/21 History iron) tablet furosemide 20 mg tablet 20 mg PO QAM #90 tab 04/02/21 05/02/21 04/30/21 Rx clindamycin HCl 300 mg capsule 300 mg PO TID PRN 05/02/21 05/02/21 Unknown History famotidine 20 mg tablet 20 mg PO QAM 05/02/21 05/02/21 04/30/21 History lisinopril 10 mg tablet 10 mg PO QAM 05/02/21 05/02/21 04/30/21 History metformin 500 mg tablet,extended 500 mg PO BEDTIME 05/02/21 05/02/21 04/30/21 History release 24 hr Allergies Allergy/AdvReac Type Severity Reaction Status Date / Time elizabeth Allergy Mild unknown Verified 05/02/21 11:04 Current Medications Generic Name Dose Route Start Last Admin Trade Name Tiq PRN Reason Stop Dose Admin Sodium Chloride 1,000 mls @ 30 mls/hr 05/02/21 12:10 05/02/21 15:16 Sodium Chloride 0.9% IV 05/03/21 12:09 30 mls/hr .Q24H ONE Administration PFSH Acute PFSH: Medical History (Updated 05/02/21 @ 15:40 by Pramod Jones MD) Esophageal obstruction due to food impaction Hidradenitis suppurativa History of COVID-19 Leiomyoma of uterus Prediabetes Surgical History H/O tubal ligation History of tonsillectomy and adenoidectomy S/P laparoscopic hysterectomy Mar 2021 Family History Daughter Bleeding disorder lupus Father Cancer esophageal Mother Cancer skin Breast cancer Thyroid condition Family/Other Breast cancer Maternal aunt Grandfather Stroke Paternal Other Glaucoma Lupus Denies family history of Diabetes CAD (coronary artery disease) Clotting disorder Hyperlipidemia Chronic kidney disease (CKD) Hypertension Social History Smoking and tobacco status: former smoker Alcohol intake: current Alcohol intake frequency: few times a month Vitals/I&O/Wt Last Vital Signs Temp 98.7 F 05/02/21 11:29 Pulse 82 05/02/21 14:51 Resp 16 05/02/21 14:51 BP 155/88 05/02/21 14:30 Pulse Ox 99 05/02/21 14:51 Weight last 48 hrs Weight 310 lb Physical Exam Narrative: HEENT: Normocephalic Eye: Sclera /conjunctiva normal Abdomen: Soft to palpation Neurological: Oriented to place person and time Skin: Intact, no lesions appreciated on gross exam A&P Assessment and plan (1) Esophageal obstruction due to food impaction: 51-year-old female who presents with 36-hour history of esophageal obstruction due to food impaction. Patient denies any chest or abdominal pain Plan for EGD with disimpaction of food bolus under general anesthesia Procedure, risks, benefits and alternatives have been discussed with the patient who wishes to proceed with surgery. Status: Acute Coding Level of Care Code Acute District Manager for [facility] Fwd Diagnoses Esophageal obstruction due to food impaction K22.2; T18.128A
--- NOTE | 2021-05-02 16:15 | ANE.PACU2 ---
Inpatient post-anesthesia follow up: Airway intact: Yes Vital signs: Temperature 98.7 F Pulse Rate 80 Respiratory Rate 18 Blood Pressure 153/78 Pulse Oximetry 98 Oxygen Delivery Me thod Room Air Oxygen Flow Rate Fraction of Inspir ed Oxygen Hydration adequate: Yes Nausea and vomiting: No Pain level: 1 Mental status: Baseline
== END 2021-05-02 16:13 | disposition home or self-care (01) ==
LOC: ER 13:34 → OPS 14:50
PROVIDERS: Emergency Provider Emergency Medicine; PCP Family Medicine; Visit Provider Surgery
PROC: 0DJ08ZZ Inspection of Upper Intestinal Tract, Via Natural or Artificial Opening Endoscopic (ICD-10-PCS; CPT 43235; principal; 2021-05-02 15:30)
DX: T18.128A Food in esophagus causing other injury, initial encounter (principal); Z79.84 Long term (current) use of oral hypoglycemic drugs; Z86.16 Personal history of COVID-19; Z87.891 Personal history of nicotine dependence; R73.03 Prediabetes
CPT/HCPCS: 43247; J0330; J2704; J7030

== ENCOUNTER 2021-05-19 07:42 | Outpatient (CLI) | payer BC, SELFPAY ==
--- NOTE | 2021-05-19 08:00 | FL_ITS ---
WS: [id number] MODIFIED BARIUM SWALLOW TECHNIQUE: Modified barium swallow with speech therapy using multiple consistencies. FLUOROSCOPY TIME: 2.1 minutes. CLINICAL INFORMATION: Other dysphagia COMPARISON: None. FINDINGS: Multiple consistencies utilized. Normal oropharyngeal phase. No evidence of aspiration or penetration . No other significant findings. FL/FL barium swallow modifd 22060 IMPRESSION: 1. No evidence of aspiration/penetration 2. Brief delay of barium tablet transit within the midesophagus which passed w ith additional fluid.
== END 2021-05-19 07:43 | disposition home or self-care (01) ==
LOC: RAD 07:47
PROVIDERS: PCP Family Medicine; Visit Provider Surgery
DX: R13.19 Other dysphagia (principal)
CPT/HCPCS: 74230; 92611

== ENCOUNTER → 2021-06-05 09:18 | Outpatient (BNVA) | payer BC, SELFPAY | PROVIDERS: PCP Family Medicine; Visit Provider Family Medicine | DX: D50.9 Iron deficiency anemia, unspecified (principal) | CPT/HCPCS: 82728; 83550; 85025 ==

== ENCOUNTER → 2021-08-13 15:45 | Outpatient (BNVA) | payer BC, SELFPAY | PROVIDERS: PCP Family Medicine; Visit Provider Registered Nurse Neonatal Intensive Care | DX: M25.562 Pain in left knee (principal) | CPT/HCPCS: 73562 ==

== ENCOUNTER → 2021-08-26 08:11 | Outpatient (BNVA) | payer BC, SELFPAY | PROVIDERS: PCP Family Medicine; Visit Provider Family Medicine | DX: I10 Essential (primary) hypertension (principal); R73.03 Prediabetes; E66.01 Morbid (severe) obesity due to excess calories; Z68.43 Body mass index [BMI] 50.0-59.9, adult | CPT/HCPCS: 80053; 83036 ==

== ENCOUNTER 2021-08-26 10:31 | Outpatient (RCR) | payer BC, SELFPAY | END 2021-09-11 23:59 | disposition home or self-care (01) | LOC: SPT 10:31 | PROVIDERS: PCP Family Medicine; Referring Provider Nurse Practitioner Family; Visit Provider Nurse Practitioner Family | DX: M25.562 Pain in left knee (principal) | CPT/HCPCS: 80053; 83036; 97110; 97161 ==

== ENCOUNTER 2021-09-12 06:00 | Outpatient (RCR) | payer BC, SELFPAY | END 2021-10-12 23:59 | disposition home or self-care (01) | LOC: SPT 06:00 | PROVIDERS: PCP Family Medicine; Referring Provider Nurse Practitioner Family; Visit Provider Nurse Practitioner Family | DX: M25.562 Pain in left knee (principal) | CPT/HCPCS: 97110 ==

== ENCOUNTER → 2022-03-23 09:18 | Outpatient (BNVA) | payer BC, SELFPAY | PROVIDERS: PCP Family Medicine; Visit Provider Family Medicine | DX: I10 Essential (primary) hypertension (principal); R73.03 Prediabetes; D50.9 Iron deficiency anemia, unspecified; D50.0 Iron deficiency anemia secondary to blood loss (chronic); K21.9 Gastro-esophageal reflux disease without esophagitis; L73.2 Hidradenitis suppurativa | CPT/HCPCS: 80053; 80061; 82043; 82728; 83036; 83550; 85025 ==

== ENCOUNTER 2022-03-28 11:30 | Day surgery (SDC) | payer BC, SELFPAY ==
[2022-03-28] VITALS (10 sets, daily range): BP systolic 99–160; BP diastolic 62–87; PULSE 71–86; RESP 14–16; TEMP 36.1–37.1; O2SAT 92–97
--- NOTE | 2022-03-28 11:56 | ED_ITS ---
HPI - General Adult General: Chief complaint: General Medical Stated complaint: Food stuck in throat Time Seen by Provider: 03/28/22 11:50 PFSH ED PFSH: Medical History Allergic pharyngitis Allergic rhinitis due to allergen Esophageal obstruction due to food impaction Hidradenitis suppurativa History of COVID-19 Leiomyoma of uterus Prediabetes Surgical History H/O tubal ligation History of tonsillectomy and adenoidectomy S/P laparoscopic hysterectomy Mar 2021 Family History Daughter Bleeding disorder lupus Father Cancer esophageal Mother Cancer skin Breast cancer Thyroid condition Family/Other Breast cancer Maternal aunt Grandfather Stroke Paternal Other Glaucoma Lupus Denies family history of Diabetes CAD (coronary artery disease) Clotting disorder Hyperlipidemia Chronic kidney disease (CKD) Hypertension Social History Smoking and tobacco status: never smoked Alcohol intake: current Alcohol intake frequency: few times a month Female Reproductive History: Spontaneous abortions: No Course Vital Signs: Vital signs: Vital Signs Temperature 97 F L 03/28/22 17:10 Pulse Rate 81 03/28/22 17:18 Respiratory Rate 14 03/28/22 17:18 Blood Pressure 127/72 03/28/22 17:18 Pulse Oximetry 97 03/28/22 17:18 Oxygen Delivery Me thod 03/28/22 17:18 Oxygen Flow Rate 10 03/28/22 16:45 MDM - General Adult Lab Data 03/28/22 12:31 03/28/22 12:31 Radiology Impressions Chest X-Ray 03/28/22 12:03 IMPRESSION: 1. No acute findings. 2. Patent esophagus and trachea Laboratory Results WBC 11.9 10^3/uL (4.0-10.0) H 03/28/22 12:31 RBC 4.90 10^6/uL (4.1-5.3) 03/28/22 12:31 Hgb 13.0 g/dL (11.5-15.3) 03/28/22 12:31 Hct 41.4 % (37.0-47.0) 03/28/22 12:31 MCV 84.5 fl (81-99) 03/28/22 12: MCH 26.5 pg (28.0-34.0) L 03/28/22 12: MCHC 31.4 g/dL (30.0-36.0) 03/28/22 12: RDW 14.4 % (12.1-15.1) 03/28/22 12: Plt Count 408 10^3/cmm (130-400) H 03/28/22 12: MPV 9.6 fL (7.4-10.4) 03/28/22 12: Neut % (Auto) 75.3 % 03/28/22 12: Lymph % (Auto) 16.7 % 03/28/22 12: [place] % (Auto) 5.1 % 03/28/22 12: Eos % (Auto) 1.6 % 03/28/22 12: Baso % (Auto) 0.9 % 03/28/22 12: Neut # (Auto) 8.93 10^3/uL (1.8-7.7) H 03/28/22 12: Lymph # (Auto) 2.0 10^3/uL (0.8-4.8) 03/28/22 12: [place] # (Auto) 0.6 10^3/uL (0.2-0.9) 03/28/22 12: Eos # (Auto) 0.2 10^3/uL (0.0-0.8) 03/28/22 12: Baso # (Auto) 0.1 10^3/uL (0.0-0.1) 03/28/22 12: Nucleated RBC % (auto) 0 % 03/28/22 12: Nucleated RBCs # 0.0 /100WBC 03/28/22 12: Sodium 139 mmol/L (136-145) 03/28/22 12: Potassium 3.7 mmol/L (3.5-5.1) 03/28/22 12: Chloride 100 mmol/L (98-107) 03/28/22 12: Carbon Dioxide 28 mmol/L (22-29) 03/28/22 12: Anion Gap 14.7 (5-19) 03/28/22 12:31 BUN 7 mg/dL (6-20) 03/28/22 12:31 Creatinine 0.5 mg/dL (0.5-0.9) 03/28/22 12:31 GFR Calculation 130.6 mL/min (90-130) H 03/28/22 12:31 Glucose 98 mg/dL (65-115) 03/28/22 12:31 Calculated Osmolality 286 mOsm/kg (285-295) 03/28/22 12:31 Calcium 9.2 mg/dL (8.5-10.5) 03/28/22 12:31 Discharge Plan Discharge Patient Disposition: Placed in Observation Clinical Impression: Esophageal obstruction due to food impaction Discharge Diet: Full LIquid Discharge Activity: Resume usual activity Coding Level of Care Code 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
--- NOTE | 2022-03-28 12:03 | XRR_ITS ---
PROCEDURE INFORMATION: Exam: XR Chest Exam date and time: 03/28/2022 12:10 PM Age: 52 years old Clinical indication: Shortness of breath; Additional info: Esophageal food bolus TECHNIQUE: Imaging protocol: Radiologic exam of the chest. Views: 2 views. COMPARISON: CR XR chest 1V portable [id number] 01/22/2021 4:33 PM FINDINGS: Lungs: Unremarkable. No consolidation. Pleural spaces: Unremarkable. No pleural effusion. No pneumothorax. Heart/Mediastinum: Unremarkable. No cardiomegaly. The trachea and esophagus appear patent no evidence of intraluminal densities are present. Bones/joints: Unremarkable. XR/XR chest 2V* [id number] IMPRESSION: 1. No acute findings. 2. Patent esophagus and trachea
--- NOTE | 2022-03-28 12:04 | W.ED.GENADLT ---
HPI - General Adult General: Chief complaint: General Medical Stated complaint: Food stuck in throat Time Seen by Provider: 03/28/22 11:50 Source: patient Mode of arrival: ambulatory Limitations: no limitations History of Present Illness: See nursing assessment. Patient states she ate a large piece of brisket on and got stuck in her esophagus. She states she has been able to drink some fluids but unable to get any solid food down. She states she had a history of getting food stuck in her esophagus couple times before. She has had work-ups that included EGDs and swallowing studies. She reports nothing acute was found except for food boluses. She feels like the food boluses stuck in her midesophagus. Associated symptoms: Reports nausea and vomiting (Only after eating food); Deny chest pain, dyspnea, headache(s), rash or palpitations Review of Systems Const: Denies: fever(s) or chills Eyes: Denies: change in vision ENMT: Denies: throat pain Card: Denies: chest pain or palpitations Resp: Denies: dyspnea or wheezing GI: Reports: nausea and vomiting (Only after eating food); Denies: abdominal pain : Denies: flank pain Musc: Denies: neck pain or back pain Skin/Breast: Denies: rash or pruritus Neuro: Denies: headache(s) or numbness in extremities Psych: Denies: anxiety Emre/Lymph: Denies: enlarged lymph nodes PFSH ED PFSH: Medical History Allergic pharyngitis Allergic rhinitis due to allergen Esophageal obstruction due to food impaction Hidradenitis suppurativa History of COVID-19 Leiomyoma of uterus Prediabetes Surgical History H/O tubal ligation History of tonsillectomy and adenoidectomy S/P laparoscopic hysterectomy Mar 2021 Family History Daughter Bleeding disorder lupus Father Cancer esophageal Mother Cancer skin Breast cancer Thyroid condition Family/Other Breast cancer Maternal aunt Grandfather Stroke Paternal Other Glaucoma Lupus Denies family history of Diabetes CAD (coronary artery disease) Clotting disorder Hyperlipidemia Chronic kidney disease (CKD) Hypertension Social History Smoking and tobacco status: never smoked Alcohol intake: current Alcohol intake frequency: few times a month Female Reproductive History: Spontaneous abortions: No Physical Exam Const: COMMON NORMALS: no acute distress, patient oriented x3, no limitations and well nourished GENERAL APPEARANCE: cooperative OTHER: Patient was able to swallow water but vomited approximately a third of the water swallowed. She still feels like there is a food bolus in her midesophagus. HENMT: COMMON NORMALS: normocephalic and atraumatic HEAD & SCALP: normocephalic and atraumatic FACE & SINUS: normal facial exam Eye: COMMON NORMALS: EOMs intact bilaterally Neck/C-Spine: COMMON NORMALS: full ROM, no lymphadenopathy, supple and no meningeal signs GENERAL: Yes normal visual inspection Lymph: LYMPHATIC: no lymphadenopathy noted Chest: COMMONS NORMALS: normal inspection of the chest and normal palpation of entire chest wall CHEST: No Ecchymosis present and No rash Resp: COMMON NORMALS: normal respiratory effort, No retractions and clear to auscultation bilaterally EFFORT & INSPECTION: No respiratory distress AUSCULTATION: clear to auscultation bilaterally Cardio: COMMON NORMALS: regular rate, regular rhythm and Peripheral pulses 2+ throughout JUGULAR VENOUS DISTENTION: no JVD RATE: regular rate RHYTHM: regular rhythm PERIPHERAL PULSES: Peripheral pulses 2+ throughout GI: COMMON NORMALS: Normal to inspection, nondistended, normoactive bowel sounds present and non-tender OTHER: Obese : COMMON NORMALS: Yes no CVA tenderness BLADDER/KIDNEY EXAM: Yes no CVA tenderness Back/Pelvis: COMMON NORMALS: no CVA tenderness Extremity: COMMON NORMALS: normal to inspection, full ROM and capillary refill normal Neuro: COMMON NORMALS: patient oriented x3, CN's II-XII intact bilaterally, no focal motor deficits and no sensory deficits noted MENINGEAL SIGNS: Yes no meningeal signs Psych: COMMON NORMALS: mental status grossly normal and Normal thought process present THOUGHT PROCESS: Normal thought process present Skin: COMMON NORMALS: no rashes or lesions noted and no wounds GENERAL SKIN EXAM: no rashes or lesions noted Course Vital Signs: Vital signs: Vital Signs Temperature 97 F L 03/28/22 17:10 Pulse Rate 81 03/28/22 17:18 Respiratory Rate 14 03/28/22 17:18 Blood Pressure 127/72 01/14/23 17:18 Pulse Oximetry 97 03/28/22 17:18 Oxygen Delivery Me thod 03/28/22 17:18 Oxygen Flow Rate 10 03/28/22 16:45 MDM - General Adult Medical Decision Making Esophageal food bolus 1350: No change after glucagon IV. No change after atropine also. 1512: Discussed case with Dr. Pichardo on-call for general surgery. He states he will do endoscopy to remove food bolus. Lab Data 03/28/22 12:31 03/28/22 12:31 Radiology Impressions Chest X-Ray 03/28/22 12:03 IMPRESSION: 1. No acute findings. 2. Patent esophagus and trachea Laboratory Results WBC 11.9 10^3/uL (4.0-10.0) H 03/28/22 12:31 RBC 4.90 10^6/uL (4.1-5.3) 03/28/22 12:31 Hgb 13.0 g/dL (11.5-15.3) 03/28/22 12:31 Hct 41.4 % (37.0-47.0) 03/28/22 12:31 MCV 84.5 fl (81-99) 03/28/22 12:31 MCH 26.5 pg (28.0-34.0) L 03/28/22 12:31 MCHC 31.4 g/dL (30.0-36.0) 03/28/22 12:31 RDW 14.4 % (12.1-15.1) 03/28/22 12:31 Plt Count 408 10^3/cmm (130-400) H 03/28/22 12:31 MPV 9.6 fL (7.4-10.4) 03/28/22 12:31 Neut % (Auto) 75.3 % 03/28/22 12:31 Lymph % (Auto) 16.7 % 03/28/22 12:31 [place] % (Auto) 5.1 % 03/28/22 12:31 Eos % (Auto) 1.6 % 03/28/22 12:31 Baso % (Auto) 0.9 % 03/28/22 12:31 Neut # (Auto) 8.93 10^3/uL (1.8-7.7) H 03/28/22 12:31 Lymph # (Auto) 2.0 10^3/uL (0.8-4.8) 03/28/22 12:31 [place] # (Auto) 0.6 10^3/uL (0.2-0.9) 03/28/22 12:31 Eos # (Auto) 0.2 10^3/uL (0.0-0.8) 03/28/22 12:31 Baso # (Auto) 0.1 10^3/uL (0.0-0.1) 03/28/22 12:31 Nucleated RBC % (auto) 0 % 03/28/22 12:31 Nucleated RBCs # 0.0 /100WBC 03/28/22 12:31 Sodium 139 mmol/L (136-145) 03/28/22 12:31 Potassium 3.7 mmol/L (3.5-5.1) 03/28/22 12:31 Chloride 100 mmol/L (98-107) 03/28/22 12:31 Carbon Dioxide 28 mmol/L (22-29) 03/28/22 12:31 Anion Gap 14.7 (5-19) 03/28/22 12:31 BUN 7 mg/dL (6-20) 03/28/22 12:31 Creatinine 0.5 mg/dL (0.5-0.9) 03/28/22 12:31 GFR Calculation 130.6 mL/min (90-130) H 03/28/22 12:31 Glucose 98 mg/dL (65-115) 03/28/22 12:31 Calculated Osmolality 286 mOsm/kg (285-295) 03/28/22 12:31 Calcium 9.2 mg/dL (8.5-10.5) 03/28/22 12:31 Discharge Plan Discharge Patient Disposition: Placed in Observation Clinical Impression: Esophageal obstruction due to food impaction Discharge Diet: Full LIquid Discharge Activity: Resume usual activity Coding Level of Care Code ED 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
[2022-03-28 12:40] LABS: Basophils # 0.1 10^3/uL (0.0-0.1); Basophils % 0.9 %; Eosinophils # 0.2 10^3/uL (0.0-0.8); Eosinophils % 1.6 %; Hematocrit 41.4 % (37.0-47.0); Lymphocytes % 16.7 %; Mean Corpuscular HGB Conc 31.4 g/dL (30.0-36.0); Mean Corpuscular Hemoglobin 26.5 pg (28.0-34.0); Mean Corpuscular Volume 84.5 fl (81-99); Mean Platelet Volume 9.6 fL (7.4-10.4); Monocytes # 0.6 10^3/uL (0.2-0.9); Monocytes % 5.1 %; Neutrophils # 8.93 10^3/uL (1.8-7.7); Neutrophils % 75.3 %; Nucleated Red Blood Cells % 0 %; Platelet Count 408 10^3/cmm (130-400); Red Cell Distribution Width 14.4 % (12.1-15.1); White Blood Count 11.9 10^3/uL (4.0-10.0)
[2022-03-28 13:11] LABS: Anion Gap 14.7 (5-19); Blood Urea Nitrogen 7 mg/dL (6-20); Calcium 9.2 mg/dL (8.5-10.5); Carbon Dioxide 28 mmol/L (22-29); Chloride 100 mmol/L (98-107); Glomerular Filtration Rate 130.6 mL/min (90-130); Glucose 98 mg/dL (65-115); Osmolality Calculated 286 mOsm/kg (285-295); Potassium 3.7 mmol/L (3.5-5.1); Sodium 139 mmol/L (136-145)
[2022-03-28] MEDS: ketorolac 30 mg/mL INJ 15 MG IVP (15:36)
--- NOTE | 2022-03-28 15:49 | PM.HP ---
Providers/Chief Complaint Primary Care Provider: Leona Colin DO Chief Complaint: Food stuck in throat History of Present Illness Queenie Tapia is a 52 year old female who presents with an esophageal food bolus. This is happened to her multiple times in the past where she has needed it cleared. However she has never had a formal EGD to diagnose the underlying pathology. She reports that she has been able to swallow food since , 2 days ago. She was able to keep down coffee and hot chocolate but even water she is mostly vomiting. Denies any abdominal pain or other symptoms. Review of Systems General: Reports: 10 or more systems reviewed and unremarkable except in HPI and below Medications/Allergies Home Medications Medication Instructions Recorded Confirmed Last Taken Type acetaminophen 325 mg tablet 325 mg PO QID PRN Pain 05/09/20 03/23/22 05/08/20 History (Tylenol) ascorbic acid (vitamin C) 500 mg 500 mg PO QAM 05/09/20 03/23/22 Unknown History tablet (Vitamin C) mupirocin 2 % topical ointment 1 applic topical BID #15 grams 06/05/21 03/23/22 Unknown Rx albuterol sulfate 90 mcg/actuation 2 puff inhalation Q6H PRN 07/29/21 03/23/22 Unknown Rx aerosol inhaler (Ventolin HFA) shortness of breath or wheezing #8.5 grams naproxen 500 mg tablet 500 mg PO BID PRN pain #60 tabs 10/20/21 03/23/22 Unknown Rx ibuprofen 600 mg tablet 600 mg PO Q8H PRN pain #30 tabs 11/25/21 03/23/22 Unknown Rx multivitamin 1 tab PO DAILY 01/16/22 03/23/22 Unknown History lisinopril 40 mg tablet See Rx Instructions .Route 01/19/22 03/23/22 Unknown Rx .COMPLEX #90 tabs benzocaine 15 mg-menthol 10 mg 1 ulz PO .q2hr sore throat #30 ea 02/18/22 03/23/22 Unknown Rx lozenges (Chloraseptic Max) diphenhydramine HCl 50 mg capsule 50 mg PO .qhs allergies drainage 02/18/22 03/23/22 Unknown Rx #30 caps amlodipine 5 mg tablet See Rx Instructions .Route 02/20/22 03/23/22 Unknown Rx .COMPLEX #90 tabs fluticasone propionate 50 2 spray intranasal Q12H allergies 03/13/22 03/23/22 Unknown Rx mcg/actuation nasal #16 grams spray,suspension (24 Hour Allergy Relief) clindamycin phosphate-skin 1 ea topical DAILY PRN FLARE UPS 03/23/22 03/23/22 Unknown Rx cleanser combo no.19 1 % topical #1 ea kit furosemide 20 mg tablet See Rx Instructions .Route 03/23/22 Unknown Rx .COMPLEX #90 tabs metformin 500 mg tablet,extended 500 mg PO DAILY #90 tabs 03/23/22 03/23/22 Unknown Rx release 24 hr omeprazole 40 mg capsule,delayed 40 mg PO DAILY #90 caps 03/23/22 03/23/22 Unknown Rx release semaglutide 0.25 mg or 0.5 mg (2 0.5 mg (0.4 mL) SUBCUT .weekly 03/23/22 03/23/22 Unknown Rx mg/1.5 mL) subcutaneous pen #1.5 mL injector ([employer]) doxycycline hyclate 100 mg capsule 100 mg PO BID #20 caps 03/24/22 Unknown Rx Allergies Allergy/AdvReac Type Severity Reaction Status Date / Time elizabeth Allergy Mild unknown Verified 03/23/22 08:28 PFSH Acute PFSH: Medical History Allergic pharyngitis Allergic rhinitis due to allergen Esophageal obstruction due to food impaction Hidradenitis suppurativa History of COVID-19 Leiomyoma of uterus Prediabetes Surgical History H/O tubal ligation History of tonsillectomy and adenoidectomy S/P laparoscopic hysterectomy Mar 2021 Family History Daughter Bleeding disorder lupus Father Cancer esophageal Mother Cancer skin Breast cancer Thyroid condition Family/Other Breast cancer Maternal aunt Grandfather Stroke Paternal Other Glaucoma Lupus Denies family history of Diabetes CAD (coronary artery disease) Clotting disorder Hyperlipidemia Chronic kidney disease (CKD) Hypertension Social History Smoking and tobacco status: never smoked Alcohol intake: current Alcohol intake frequency: few times a month Female Reproductive History: Spontaneous abortions: No Vitals/I&O/Wt Last Vital Signs Temp 98.8 F 03/28/22 11:46 Pulse 71 03/28/22 13:16 Resp 15 03/28/22 13:16 BP 141/62 03/28/22 13:16 Pulse Ox 94 03/28/22 13:16 O2 Del Method 03/28/22 13:16 Weight last 48 hrs Weight 312 lb Physical Exam Narrative: General : Patient is well developed , no acute distress, oriented x3 Head : Normal cephalic, a-traumatic. Ears : Pinnae and external canal are normal. Hearing is normal. Eyes : PERRLA, Sclera and injection are normal. No conjunctival discharge. Nose : Mucous membranes are without erythema. Throat : buccal mucosa is normal, gums are without significant recession or hypertrophy. Lungs : Equal chest rise bilaterally, no use of accessory muscles, trachea is midline. Cor : Rate and rhythm are normal. Abdomen : Soft, ND, NT, no g/r/m Extremities : No edema, no cyanosis or clubbing, dorsalis pedis pulses are present bilaterally, non-tender to palpation of calves. Upper extremities are normal bilaterally. Back : non-tender to palpation, no CVA tenderness. Neuro : CN II - XII intact, Upper and lower extremities have equal and full strength Data 03/28/22 12:31 03/28/22 12:31 A&P Assessment and plan (1) Esophageal obstruction due to food impaction: Plan EGD The risks and benefits of the procedure, including bleeding, infection, intestinal perforation requiring surgery, missed lesion were explained to the patient. The patient is understanding of the risks and wishes to proceed. Attestations Medical Necessity Statement*: Home after the procedure Coding Level of Care Code Acute Code for Chg Fwd Diagnoses Esophageal obstruction due to food impaction K22.2; T18.128A
--- NOTE | 2022-03-28 16:10 | P.ANESASSM_ITS ---
Pre-Anesthetic Assessment Height/Weight: Height 1.57 m Weight 141.521 kg Temp Pulse Resp BP Pulse Ox O2 Del Method 98.8 F 71 15 141/62 94 03/28/22 11:46 03/28/22 13:16 03/28/22 13:16 03/28/22 13:16 03/28/22 13:16 03/28/22 13:16 Preop Diagnosis: Food impaction Operation Date: 03/28/22 16:30 Proposed Procedures p Foreign Body Removal(Left) - Johnathan Pichardo DO Familial anesthetic complications: None Was Beta Cyndee taken within 24 hours: N/A Was Clonidine taken within 24 hours: N/A Last intake: Hot chocolate with some whipped cream on top at 11:00 Social No alcohol and No tobacco Exam alert, oriented x 3, clear to auscultation bilaterally and regular rate & rhythm Airway Mallampati: Class III Dentition: chipped CV/HEM Hypertension Metabolic Diabetes Mellitus and Morbid Obesity Anesthetic Plan ASA status: 3 Anesthesia: General Other: RSI for foood bolus Risk of > 500 ml blood loss (7ml/kg in children): No Medications/Allergies Home Medications Medication Instructions Recorded Confirmed Last Taken Type acetaminophen 325 mg tablet 325 mg PO QID PRN Pain 05/09/20 03/23/22 05/08/20 History (Tylenol) ascorbic acid (vitamin C) 500 mg 500 mg PO QAM 05/09/20 03/23/22 Unknown History tablet (Vitamin C) mupirocin 2 % topical ointment 1 applic topical BID #15 grams 06/05/21 03/23/22 Unknown Rx albuterol sulfate 90 mcg/actuation 2 puff inhalation Q6H PRN 07/29/21 03/23/22 Unknown Rx aerosol inhaler (Ventolin HFA) shortness of breath or wheezing #8.5 grams naproxen 500 mg tablet 500 mg PO BID PRN pain #60 tabs 10/20/21 03/23/22 Unknown Rx ibuprofen 600 mg tablet 600 mg PO Q8H PRN pain #30 tabs 11/25/21 03/23/22 Unknown Rx multivitamin 1 tab PO DAILY 01/16/22 03/23/22 Unknown History lisinopril 40 mg tablet See Rx Instructions .Route 01/19/22 03/23/22 Unknown Rx .COMPLEX #90 tabs benzocaine 15 mg-menthol 10 mg 1 luz PO .q2hr sore throat #30 ea 02/18/22 03/23/22 Unknown Rx lozenges (Chloraseptic Max) diphenhydramine HCl 50 mg capsule 50 mg PO .qhs allergies drainage 02/18/22 03/23/22 Unknown Rx #30 caps amlodipine 5 mg tablet See Rx Instructions .Route 02/20/22 03/23/22 Unknown Rx .COMPLEX #90 tabs fluticasone propionate 50 2 spray intranasal Q12H allergies 03/13/22 03/23/22 Unknown Rx mcg/actuation nasal #16 grams spray,suspension (24 Hour Allergy Relief) clindamycin phosphate-skin 1 ea topical DAILY PRN FLARE UPS 03/23/22 03/23/22 Unknown Rx cleanser combo no.19 1 % topical #1 ea kit furosemide 20 mg tablet See Rx Instructions .Route 03/23/22 Unknown Rx .COMPLEX #90 tabs metformin 500 mg tablet,extended 500 mg PO DAILY #90 tabs 03/23/22 03/23/22 Unknown Rx release 24 hr omeprazole 40 mg capsule,delayed 40 mg PO DAILY #90 caps 03/23/22 03/23/22 Unknown Rx release semaglutide 0.25 mg or 0.5 mg (2 0.5 mg (0.4 mL) SUBCUT .weekly 03/23/22 03/23/22 Unknown Rx mg/1.5 mL) subcutaneous pen #1.5 mL injector ([employer]) doxycycline hyclate 100 mg capsule 100 mg PO BID #20 caps 03/24/22 Unknown Rx Allergies Allergy/AdvReac Type Severity Reaction Status Date / Time elizabeth Allergy Mild unknown Verified 03/23/22 08:28 [facility], [facility] Anesthesia Medical History Allergic pharyngitis Allergic rhinitis due to allergen Esophageal obstruction due to food impaction Hidradenitis suppurativa History of COVID-19 Leiomyoma of uterus Prediabetes Surgical History H/O tubal ligation History of tonsillectomy and adenoidectomy S/P laparoscopic hysterectomy Mar 2021 Family History Daughter Bleeding disorder lupus Father Cancer esophageal Mother Cancer skin Breast cancer Thyroid condition Family/Other Breast cancer Maternal aunt Grandfather Stroke Paternal Other Glaucoma Lupus Denies family history of Diabetes CAD (coronary artery disease) Clotting disorder Hyperlipidemia Chronic kidney disease (CKD) Hypertension Social History Smoking and tobacco status: never smoked Alcohol intake: current Alcohol intake frequency: few times a month Female Reproductive History Spontaneous abortions: No Data Anesthesia 03/28/22 12:31 03/28/22 12:31 Short CBC 03/28/22 Range/Units 12:31 WBC 11.9 H (4.0-10.0) 10^3/uL Hgb 13.0 (11.5-15.3) g/dL Hct 41.4 (37.0-47.0) % MCV 84.5 (81-99) fl Plt Count 408 H (130-400) 10^3/cmm Neut % (Auto) 75.3 % Neut # (Auto) 8.93 H (1.8-7.7) 10^3/uL BMP 03/28/22 12:31 Sodium 139 Potassium 3.7 Chloride 100 Carbon Dioxide 28 BUN 7 Creatinine 0.5 Glucose 98 Calcium 9.2 Cardiac Studies: No Data to Display
--- NOTE | 2022-03-28 16:40 | PM.DCS ---
Discharge Providers Date of Discharge: March 28, 2022 Attending Provider at Discharge: Johnathan Pichardo DO Primary Care Provider: Leona Colin DO Diagnoses at Discharge Discharge Diagnosis (1) Esophageal obstruction due to food impaction: Status: Acute Reason for Visit Reason for Visit: Food stuck in throat Hospital Course Hospital Course Patient came in with an esophageal food bolus and was successfully cleared by endoscopy. Physical Exam Narrative: General : Patient is well developed , no acute distress, oriented x3 Head : Normal cephalic, a-traumatic. Ears : Pinnae and external canal are normal. Hearing is normal. Eyes : PERRLA, Sclera and injection are normal. No conjunctival discharge. Nose : Mucous membranes are without erythema. Throat : buccal mucosa is normal, gums are without significant recession or hypertrophy. Lungs : Equal chest rise bilaterally, no use of accessory muscles, trachea is midline. Cor : Rate and rhythm are normal. Abdomen : Soft, ND, NT, no g/r/m Extremities : No edema, no cyanosis or clubbing, dorsalis pedis pulses are present bilaterally, non-tender to palpation of calves. Upper extremities are normal bilaterally. Back : non-tender to palpation, no CVA tenderness. Neuro : CN II - XII intact, Upper and lower extremities have equal and full strength Discharge Data Studies Completed and Pending Completed Studies During Hospitalization Category Date Time Status XR chest 2V* [id number] Urgent Exams 03/28/22 12:03 Completed Radiology Impressions Chest X-Ray 03/28/22 12:03 IMPRESSION: 1. No acute findings. 2. Patent esophagus and trachea Laboratory Results WBC 11.9 10^3/uL (4.0-10.0) H 03/28/22 12:31 RBC 4.90 10^6/uL (4.1-5.3) 03/28/22 12:31 Hgb 13.0 g/dL (11.5-15.3) 03/28/22 12:31 Hct 41.4 % (37.0-47.0) 03/28/22 12:31 MCV 84.5 fl (81-99) 03/28/22 12:31 MCH 26.5 pg (28.0-34.0) L 03/28/22 12:31 MCHC 31.4 g/dL (30.0-36.0) 03/28/22 12:31 RDW 14.4 % (12.1-15.1) 03/28/22 12:31 Plt Count 408 10^3/cmm (130-400) H 03/28/22 12:31 MPV 9.6 fL (7.4-10.4) 03/28/22 12:31 Neut % (Auto) 75.3 % 03/28/22 12: Lymph % (Auto) 16.7 % 03/28/22 12: Hardeman % (Auto) 5.1 % 03/28/22 12:31 Eos % (Auto) 1.6 % 03/28/22 12:31 Baso % (Auto) 0.9 % 03/28/22 12: Neut # (Auto) 8.93 10^3/uL (1.8-7.7) H 03/28/22 12:31 Lymph # (Auto) 2.0 10^3/uL (0.8-4.8) 03/28/22 12: Hardeman # (Auto) 0.6 10^3/uL (0.2-0.9) 03/28/22 12:31 Eos # (Auto) 0.2 10^3/uL (0.0-0.8) 03/28/22 12: Baso # (Auto) 0.1 10^3/uL (0.0-0.1) 03/28/22 12:31 Nucleated RBC % (auto) 0 % 03/28/22 12: Nucleated RBCs # 0.0 /100WBC 03/28/22 12:31 Sodium 139 mmol/L (136-145) 03/28/22 12:31 Potassium 3.7 mmol/L (3.5-5.1) 03/28/22 12: Chloride 100 mmol/L (98-107) 03/28/22 12:31 Carbon Dioxide 28 mmol/L (22-29) 03/28/22 12:31 Anion Gap 14.7 (5-19) 03/28/22 12:31 BUN 7 mg/dL (6-20) 03/28/22 12:31 Creatinine 0.5 mg/dL (0.5-0.9) 03/28/22 12:31 GFR Calculation 130.6 mL/min (90-130) H 01/14/23 12:31 Glucose 98 mg/dL (65-115) 03/28/22 12:31 Calculated Osmolality 286 mOsm/kg (285-295) 03/28/22 12:31 Calcium 9.2 mg/dL (8.5-10.5) 03/28/22 12:31 Procedures Performed EGD Vitals Last Vital Signs Temp 98.8 F 03/28/22 11:46 Pulse 71 03/28/22 13:16 Resp 15 03/28/22 13:16 BP 141/62 03/28/22 13:16 Pulse Ox 94 03/28/22 13:16 O2 Del Method 03/28/22 13:16 Discharge Plan Discharge Patient Disposition: Home Condition: Stable Prescriptions: Continued clindamycin phos-skin clnsr 19 1 % kit 1 ea topical DAILY PRN (Reason: FLARE UPS) Qty: 1 0RF albuterol sulfate [Ventolin HFA] 90 mcg/actuation HFA aerosol inhaler 2 puff inhalation Q6H PRN (Reason: shortness of breath or wheezing) Qty: 8.5 0RF mupirocin 2 % ointment 1 applic topical BID Qty: 15 0RF multivitamin Tablet 1 tab PO DAILY diphenhydramine HCl 50 mg capsule 50 mg PO .qhs Qty: 30 3RF Chloraseptic Max 15-10 mg lozenge 1 luz PO .q2hr Qty: 30 3RF omeprazole 40 mg capsule,delayed release(DR/EC) 40 mg PO DAILY Qty: 90 1RF metformin 500 mg tablet extended release 24 hr 500 mg PO DAILY Qty: 90 0RF lisinopril 40 mg tablet See Rx Instructions .ROUTE .COMPLEX Qty: 90 0RF Dose Instruction: TAKE 1 TABLET BY MOUTH EVERY DAY IN THE MORNING Rx Instructions: TAKE 1 TABLET BY MOUTH EVERY DAY IN THE MORNING amlodipine 5 mg tablet See Rx Instructions .ROUTE .COMPLEX Qty: 90 0RF Dose Instruction: TAKE 1 TABLET BY MOUTH EVERY DAY Rx Instructions: TAKE 1 TABLET BY MOUTH EVERY DAY fluticasone propionate [24 Hour Allergy Relief] 50 mcg/actuation spray,suspension 2 spray intranasal Q12H Qty: 16 5RF Rx Instructions: administer into each nostril Ozempic 0.25 mg or 0.5 mg(2 mg/1.5 mL) pen injector 0.5 mg SUBCUT .weekly Qty: 1.5 2RF Rx Instructions: Please disregard prior rx diagnosis not covered by insurance furosemide 20 mg tablet See Rx Instructions .ROUTE .COMPLEX Qty: 90 1RF Dose Instruction: TAKE 1 TABLET BY MOUTH EVERY DAY IN THE MORNING Rx Instructions: TAKE 1 TABLET BY MOUTH EVERY DAY IN THE MORNING doxycycline hyclate 100 mg capsule 100 mg PO BID Qty: 20 0RF acetaminophen [Tylenol] 325 mg Tablet 325 mg PO QID PRN (Reason: Pain) ascorbic acid (vitamin C) [Vitamin C] 500 mg Tablet 500 mg PO QAM Held ibuprofen 600 mg tablet 600 mg PO Q8H PRN (Reason: pain) Qty: 30 0RF Hold Instructions: Resume on 03/31/22. naproxen 500 mg tablet 500 mg PO BID PRN (Reason: pain) Qty: 60 0RF Hold Instructions: Resume on 03/31/22. Discharge Orders: Discharge Order (Routine); Ordered 03/28/22 Ordered By: Johnathan Pichardo Referrals: Johnathan Pichardo DO [Physician] - 2 weeks Leona Colin DO [Primary Care Provider] - 4-7 days Discharge Diet: Full LIquid Discharge Activity: Resume usual activity Activity Restrictions/Additional Instructions: Liquid only diet for 2 days. Take as few pills as possible for 2 days. Discharge Attestations Time Spent in Discharge Care*: less than 30 min Quality Metrics Clinical Quality Measures [ No reported AMI, CVA or VTE this stay] Coding Level of Care Code Acute Chg FW DC note Diagnoses Esophageal obstruction due to food impaction K22.2; T18.128A
--- NOTE | 2022-03-28 18:00 | ANE.PACU2 ---
Inpatient post-anesthesia follow up: Airway intact: Yes Vital signs: Temperature 97 F Pulse Rate 81 Respiratory Rate 14 Blood Pressure 127/72 Pulse Oximetry 97 Oxygen Delivery Me thod Room Air Oxygen Flow Rate 10 Fraction of Inspir ed Oxygen Hydration adequate: Yes Nausea and vomiting: No Pain level: 1 Mental status: Baseline
== END 2022-03-28 17:25 | disposition home or self-care (01) ==
LOC: ER 15:16 → GILAB 15:20
PROVIDERS: Emergency Provider Family Medicine; PCP Family Medicine; Visit Provider Surgery
DX: T18.128A Food in esophagus causing other injury, initial encounter (principal); Y83.8 Other surgical procedures as the cause of abnormal reaction of the patient, or of later complication, without mention of misadventure at the time of the procedure; K22.2 Esophageal obstruction; Z86.16 Personal history of COVID-19; I10 Essential (primary) hypertension; E11.9 Type 2 diabetes mellitus without complications; E66.01 Morbid (severe) obesity due to excess calories; Z68.43 Body mass index [BMI] 50.0-59.9, adult
CPT/HCPCS: 36415; 43247; 71046; 80048; 85025; J0330; J0461; J1610; J1885; J2405; J2704

== ENCOUNTER 2022-04-27 10:57 | Outpatient (CLI) | payer BC, SELFPAY ==
--- NOTE | 2022-04-27 11:09 | MM_ITS ---
WS: [id number] DIAGNOSTIC BILATERAL DIGITAL BREAST TOMOSYNTHESIS MAMMOGRAPHY WITH CAD RIGHT breast ultrasound, limited HISTORY: RT BREAST LUMP COMPARISON: 09/11/2020 TECHNIQUE: Bilateral craniocaudad, mediolateral oblique, and mediolateral views are submitted with to mosynthesis and SM. Spot compression RIGHT MLO. Computer aided detection utilized. Breast composition: There are scattered areas of fibroglandular density. Palpable marker is placed al lawanda the posterior RIGHT chest wall. Incompletely included due to its far posterior position. No abnor mality is identified on the imaging submitted. Benign asymmetries within each breast are stable. No c alcification. RIGHT breast ultrasound, limited. Palpable area corresponds to a hypoechoic mass with echogenic borders measuring 1.1 x 0.6 x 1.4 cm. M ass is at 2:00 near the sternum. This is very superficial and could potentially be a small sebaceous cyst. There is mild increased vascularity within the echogenic periphery. MM/[place] [id number] IMPRESSION: BI-RADS: 4-Suspicious Finding-Biopsy Should Be Considered FOLLOW UP: Biopsy Recommended 1. Ultrasound-guided biopsy recommended superficial mass in the RIGHT breast a t 2:00. This could potentially be a sebaceous cyst.
== END 2022-04-27 10:58 | disposition home or self-care (01) ==
PROVIDERS: PCP Family Medicine; Visit Provider Family Medicine
DX: N63.12 Unspecified lump in the right breast, upper inner quadrant (principal)
CPT/HCPCS: 76642; 77062; G0279

== ENCOUNTER 2022-05-01 08:08 | Day surgery (SDC) | payer BC, SELFPAY ==
[2022-04-28 12:57] VITALS: BMI 55.7
[2022-05-01 08:31] VITALS: BP 204/97; PULSE 83; RESP 17; TEMP 37.2; O2SAT 96
[2022-05-01] MEDS: sodium chloride 0.9% 1,000 ML 30 ML IV (08:37)
[2022-05-01 08:40] LABS: Glucose Point of Care 108 mg/dL (70-110)
--- NOTE | 2022-05-01 09:12 | P.ANESASSM_ITS ---
Pre-Anesthetic Assessment Height/Weight: Height 1.6 m Weight 142.882 kg Temp Pulse Resp BP Pulse Ox O2 Del Method 99 F 83 17 204/97 96 05/01/22 08:31 05/01/22 08:31 05/01/22 08:31 05/01/22 08:31 05/01/22 08:31 05/01/22 08:31 Preop Diagnosis: GERD Reflux Disease Operation Date: 05/01/22 10:00 [place] [id number] EGD w sunil K21.9(Not Applicable) - Johnathan Pichardo DO Familial anesthetic complications: none Was Beta Cyndee taken within 24 hours: N/A Was Clonidine taken within 24 hours: N/A Last intake: Intake Last Liquid Date 04/30/22 Last Liquid Time 21:00 Last Solid Date 04/30/22 Last Solid Time 19:00 Social Alcohol (1-2 times per month) Exam alert, oriented x 3, clear to auscultation bilaterally and regular rate & rhythm Airway Submandibular: within normal limits Cervical ROM: within normal limits Mallampati: Class III Comments: Comments: cracked molar bilateral upper. Pulmonary Cough (chronic cough patient believes its due to history of COVID. (2020)) and Sleep Apnea (diagnosed patient doesnt have machine.) CV/HEM Hypertension reports water retention and takes furosemide however denies CHF. None reported Hepatic None reported GI Gastroesophageal Reflux Disease dysphagia Metabolic Diabetes Mellitus (NIDDM) and Morbid Obesity [facility] [place] None reported Neuropsych None reported Anesthetic Plan ASA status: 3 Anesthesia: Choice Medications/Allergies Home Medications Medication Instructions Recorded Confirmed Last Taken Type acetaminophen 325 mg tablet 325 mg PO QID PRN Pain 05/09/20 04/28/22 04/25/22 History (Tylenol) ascorbic acid (vitamin C) 500 mg 500 mg PO QAM 05/09/20 05/01/22 04/27/22 History tablet (Vitamin C) mupirocin 2 % topical ointment 1 applic topical BID #15 grams 06/05/21 04/28/22 Unknown Rx albuterol sulfate 90 mcg/actuation 2 puff inhalation Q6H PRN 07/29/21 04/28/22 Unknown Rx aerosol inhaler (Ventolin HFA) shortness of breath or wheezing #8.5 grams naproxen 500 mg tablet 500 mg PO BID PRN pain #60 tabs 10/20/21 04/28/22 Unknown Rx ibuprofen 600 mg tablet 600 mg PO Q8H PRN pain #30 tabs 11/25/21 04/28/22 Unknown Rx multivitamin 1 tab PO DAILY 01/16/22 04/28/22 04/28/22 History metformin 500 mg tablet,extended 500 mg PO DAILY #90 tabs 03/23/22 05/01/22 04/30/22 Rx release 24 hr omeprazole 40 mg capsule,delayed 40 mg PO DAILY #90 caps 03/23/22 05/01/22 04/30/22 Rx release semaglutide 0.25 mg or 0.5 mg (2 0.5 mg (0.4 mL) SUBCUT .weekly 03/23/22 04/28/22 04/25/22 Rx mg/1.5 mL) subcutaneous pen #1.5 mL injector (Show de Ingressos) clindamycin phosphate 1 % topical See Rx Instructions .Route 04/20/22 04/28/22 Unknown Rx swab .COMPLEX #60 swabs amlodipine 5 mg tablet 5 mg PO DAILY 04/28/22 05/01/22 04/30/22 History benzocaine 15 mg-menthol 10 mg 1 luz PO .q2hr PRN Sore Throat 04/28/22 04/28/22 Unknown History lozenges (Chloraseptic Max) diphenhydramine HCl 50 mg capsule 50 mg PO .qhs PRN allergies 04/28/22 04/28/22 Unknown History drainage fluticasone propionate 50 2 spray intranasal Q12H PRN 04/28/22 04/28/22 04/27/22 History mcg/actuation nasal allergies spray,suspension (24 Hour Allergy Relief) furosemide 20 mg tablet 2 mg PO QAM 04/28/22 05/01/22 04/30/22 History lisinopril 40 mg tablet 40 mg PO QAM 04/28/22 05/01/22 04/30/22 History pantoprazole 40 mg tablet,delayed 40 mg PO BID 6 weeks #84 tabs 05/01/22 Unknown Rx release (Protonix) Allergies Allergy/AdvReac Type Severity Reaction Status Date / Time elizabeth Allergy Mild unknown Verified 04/28/22 12:52 Current Medications Generic Name Dose Route Start Last Admin Trade Name Freq PRN Reason Stop Dose Admin Sodium Chloride 1,000 mls @ 30 mls/hr 05/01/22 08:30 05/01/22 08:37 Sodium Chloride 0.9% IV 05/02/22 08:29 30 mls/hr .Q24H ROMEO Administration PFSH Anesthesia Medical History Allergic pharyngitis Allergic rhinitis due to allergen Esophageal obstruction due to food impaction Hidradenitis suppurativa History of COVID-19 Leiomyoma of uterus Prediabetes Surgical History (Updated 04/21/22 @ 10:18 by Johnathan Pichardo DO) H/O tubal ligation History of esophagogastroduodenoscopy (EGD) History of tonsillectomy and adenoidectomy S/P laparoscopic hysterectomy Mar 2021 Family History Daughter Bleeding disorder lupus Father Cancer esophageal Mother Cancer skin Breast cancer Thyroid condition Family/Other Breast cancer Maternal aunt Grandfather Stroke Paternal Other Glaucoma Lupus Denies family history of Diabetes CAD (coronary artery disease) Clotting disorder Hyperlipidemia Chronic kidney disease (CKD) Hypertension Social History Smoking and tobacco status: never smoked Alcohol intake: current Alcohol intake frequency: few times a month Female Reproductive History Spontaneous abortions: No Data Anesthesia Cardiac Studies: No Data to Display
--- NOTE | 2022-05-01 09:26 | W.PM.OPSUD ---
Surgery/Procedure H&P Update DATE OF PROCEDURE: May 01, 2022 DATE H&P PERFORMED: 04/21/22 H&P UPDATE INFORMATION: I have reviewed H&P completed within last 30 days, I have examined patient prior to procedure and No changes to prior documentation PREOP DIAGNOSIS: GERD Reflux Disease PLANNED PROCEDURE: Operation Date: 05/01/22 10:00 Proposed Procedures p [id number] EGD cristina barber K21.9(Not Applicable) - Johnathan Pichardo DO
[2022-05-01 09:48] VITALS: BP 127/86; PULSE 82; RESP 14; TEMP 36.6; O2SAT 95
[2022-05-01 10:03] VITALS: BP 137/82; PULSE 80; RESP 16; O2SAT 97
[2022-05-01 10:13] VITALS: BP 134/89; PULSE 75; RESP 16; O2SAT 97
--- NOTE | 2022-05-01 13:30 | ANE.PACU2 ---
Inpatient post-anesthesia follow up: Airway intact: Yes Vital signs: Temperature 97.9 F Pulse Rate 75 Respiratory Rate 16 Blood Pressure 134/89 Pulse Oximetry 97 Oxygen Delivery Me thod Room Air Oxygen Flow Rate Fraction of Inspir ed Oxygen Hydration adequate: Yes Nausea and vomiting: No Pain level: 2 Mental status: Baseline
== END 2022-05-01 10:25 | disposition home or self-care (01) ==
PROVIDERS: PCP Family Medicine; Visit Provider Surgery
DX: K21.9 Gastro-esophageal reflux disease without esophagitis (principal); K29.50 Unspecified chronic gastritis without bleeding; Z86.16 Personal history of COVID-19; G47.30 Sleep apnea, unspecified; I10 Essential (primary) hypertension; E11.9 Type 2 diabetes mellitus without complications; E66.01 Morbid (severe) obesity due to excess calories; Z68.43 Body mass index [BMI] 50.0-59.9, adult; Z79.84 Long term (current) use of oral hypoglycemic drugs
CPT/HCPCS: 36416; 43239; 82962; 88305; J2704; J7030

== ENCOUNTER 2022-05-21 12:48 | Outpatient (CLI) | payer BC, SELFPAY ==
--- NOTE | 2022-05-21 13:36 | US_ITS ---
WS: [id number] ULTRASOUND RIGHT BREAST HISTORY: Patient presents for biopsy of the superficial hypoechoic mass with echogenic borders in the RIGHT breast at 2:00. COMPARISON: 04/27/2022 TECHNIQUE: 2-D and Doppler. Previously described mass in the RIGHT breast at 2:00 is no longer present. Patient describes this ma ss as having decreased in size also. Patient was unable to definitely identify this mass today. Suspe ct this may have been a sebaceous cyst or an inflammatory cyst that has resolved in the interval. The re are no suspicious findings today for which biopsy should be performed. US/US breast RT limited* [id number] IMPRESSION: BI-RADS: 2-Benign FOLLOW-UP: 1 Year Follow-up Patient to return to annual screening mammogram. If this palpable area returns additional imaging at that time can be performed. There is no significant mass for which biopsy should be performed on today's s tudy.
== END 2022-05-21 12:49 | disposition home or self-care (01) ==
LOC: RAD 12:51
PROVIDERS: PCP Family Medicine; Visit Provider Family Medicine
DX: N63.12 Unspecified lump in the right breast, upper inner quadrant (principal)
CPT/HCPCS: 76642

== ENCOUNTER 2022-06-22 10:53 | Outpatient (CLI) | payer BC, SELFPAY ==
--- NOTE | 2022-06-22 11:03 | XR_ITS ---
WS: [email or web address] EXAMINATION: XR foot RT min 3V* [id number] REASON FOR EXAM: right heel pain COMPARISON: 09/29/2009 ORDER DATE: 06/22/2022 11:19 AM TECHNIQUE: 3 views of the right foot were obtained. X-RAY FINDINGS: There are no fractures or dislocations. No focal abnormal soft tissue swelling. Joint spaces are pres erved. There are prominent dorsal and plantar calcaneal spurs each about 7 mm in length. Unchanged from previous XR/XR foot RT min 3V* [id number] IMPRESSION: No fractures or dislocations of the right foot.
== END 2022-06-22 10:54 | disposition home or self-care (01) ==
LOC: RAD 10:55
PROVIDERS: PCP Family Medicine; Visit Provider Family Medicine
DX: M79.671 Pain in right foot (principal)
CPT/HCPCS: 73630

== ENCOUNTER → 2022-10-29 08:53 | Outpatient (BNVA) | payer BC, SELFPAY | PROVIDERS: PCP Family Medicine; Visit Provider Family Medicine | DX: E11.9 Type 2 diabetes mellitus without complications (principal); L73.2 Hidradenitis suppurativa | CPT/HCPCS: 83036 ==

== ENCOUNTER 2022-11-03 08:31 | Outpatient (CLI) | payer BC, SELFPAY ==
--- NOTE | 2022-11-03 08:43 | XR_ITS ---
WS: [id number] EXAMINATION: XR wrist LT min 3V* [id number] REASON FOR EXAM: fell yesterday on elbow/wrist COMPARISON: None available. ORDER DATE: 11/03/2022 8:45 AM FINDINGS: There is no sign of any acute osseous or articular abnormality. There are no specific soft tissue abn ormalities. Normal variant ulnar styloid ossicle noted. IMPRESSION: No acute osseous abnormality.
--- NOTE | 2022-11-03 08:43 | XR_ITS ---
WS: [email or web address] EXAMINATION: XR elbow LT min 3V* [id number] REASON FOR EXAM: left elbow pain after fall, radiation of pain COMPARISON: None available. ORDER DATE: 11/03/2022 8:45 AM FINDINGS: There is no sign of any acute osseous or articular abnormality. There are no specific soft tissue abn ormalities. There is an accessory ossification in the region of the medial epicondyles possibly withi n the medial collateral ligament probably from old trauma or tendinosis. IMPRESSION: No acute osseous or articular change
== END 2022-11-03 08:32 | disposition home or self-care (01) ==
PROVIDERS: PCP Family Medicine; Visit Provider Nurse Practitioner Family
DX: M25.532 Pain in left wrist (principal); M25.522 Pain in left elbow; W19.XXXA Unspecified fall, initial encounter
CPT/HCPCS: 73080; 73110

== ENCOUNTER → 2023-05-06 09:05 | Outpatient (BNVA) | payer BC, SELFPAY | PROVIDERS: PCP Family Medicine; Visit Provider Family Medicine | DX: E11.9 Type 2 diabetes mellitus without complications (principal); Z13.6 Encounter for screening for cardiovascular disorders | CPT/HCPCS: 80053; 80061; 82043; 83036; 85025 ==

== ENCOUNTER 2023-08-24 19:08 | Emergency (ER) | payer BC, SELFPAY ==
[2023-08-24 19:21] VITALS: BP 152/82; PULSE 77; RESP 18; TEMP 36.8; O2SAT 96
--- NOTE | 2023-08-24 19:43 | XRR_ITS ---
PROCEDURE INFORMATION: Exam: XR Right Knee Exam date and time: 08/24/2023 7:59 PM Age: 53 years old Clinical indication: Pain; Knee; Right TECHNIQUE: Imaging protocol: Radiologic exam of the right knee. Views: 3 views. COMPARISON: CR XR foot RT min 3V* [id number] 06/22/2022 11:16 AM FINDINGS: Bones/joints: No evidence of acute fracture or dislocation. No joint effusion. Mild to moderate tricompartmental osteoarthritis. Soft tissues: Normal. XR/XR knee RT 3V* [id number] IMPRESSION: No acute bony injury. Mild to moderate tricompartmental osteoarthritis.
--- NOTE | 2023-08-24 19:43 | XRR_ITS ---
PROCEDURE INFORMATION: Exam: XR Right Hip Exam date and time: 08/24/2023 7:57 PM Age: 53 years old Clinical indication: Hip pain; Right hip TECHNIQUE: Imaging protocol: Radiologic exam of the right hip. Views: 1 view hip with pelvis when performed. COMPARISON: US pelv w/transvag [id number] 12/31/2020 7:07 AM FINDINGS: Bones/joints: No evidence of acute fracture or destructive lesion. Mild hip osteoarthritis noted. Right sacroiliac osteoarthritis is partly visualized. Soft tissues: Unremarkable. XR/XR hip RT 2-3V wo/w pel* [id number] IMPRESSION: Mild right hip and right sacroiliac joint osteoarthritis. No fracture or destructive lesion.
[2023-08-24 19:46] VITALS: BP 152/66; RESP 18; O2SAT 94
--- NOTE | 2023-08-24 19:52 | W.ED.EXTPRO ---
Documented by User: KATE Mckay 08/24/23 22:12 HPI - Extremity Problem General: Chief complaint: Extremity Problem,Nontraumatic Stated complaint: Hip\Knee Pain Rt Side Time Seen by Provider: 08/24/23 19:16 Source: patient Mode of arrival: ambulatory Limitations: no limitations History of Present Illness: Patient is a 53-year-old female presenting to the emergency department complaining of right hip pain onset this morning. Patient states she awoke from the pain, and is now radiating distally down into her right knee. She has never had this pain before. She comments that the pain started feeling mild, however is worsened throughout the day. Denies any recent strenuous activity or trauma. She has been taken Tylenol with no relief. She does state the pain is worsened with ambulation, relieved with rest. Pain is primarily to the lateral hip joint and travels down the lateral right leg. No other symptoms or injuries to report at this time. MD Complaint: joint pain (Knee and hip) Onset (ago): hour(s) Pain Consistency: constant Location: right Radiation: distal Relieving factors: rest Exacerbating factors: range of motion and weight bearing Associated symptoms: Deny chest pain, fever(s) or rash Review of Systems General: Reports: 10 or more systems reviewed and unremarkable except in HPI and below Const: Denies: fever(s), chills or fatigue Eyes: Denies: change in vision ENMT: Denies: throat pain, ear or mastoid pain or nasal discharge Card: Denies: chest pain, palpitations, swelling of feet/ankles or lightheadedness Resp: Denies: dyspnea, productive cough or wheezing GI: Denies: abdominal pain, nausea, vomiting, diarrhea or constipation : Denies: flank pain, difficulty voiding, dysuria or urinary frequency Musc: Reports: joint pain (Right knee and hip); Denies: neck pain or back pain Skin/Breast: Denies: rash Neuro: Denies: headache(s), numbness in extremities or weakness in extremities PFSH ED PFSH: Medical History Allergic pharyngitis Allergic rhinitis due to allergen Esophageal obstruction due to food impaction Leiomyoma of uterus Prediabetes History of COVID-19 Hidradenitis suppurativa Surgical History History of esophagogastroduodenoscopy (EGD) S/P laparoscopic hysterectomy Mar 2021 History of tonsillectomy and adenoidectomy H/O tubal ligation Family History Daughter Bleeding disorder lupus Father Cancer esophageal Mother Cancer skin Breast cancer Thyroid disease Family/Other Breast cancer Maternal aunt Grandfather Stroke Paternal Other Glaucoma Lupus Denies family history of Diabetes CAD (coronary artery disease) Clotting disorder Hyperlipidemia Chronic kidney disease (CKD) Hypertension Social History Smoking and tobacco/nicotine status: never used tobacco/nicotine Alcohol intake: current Alcohol intake frequency: few times a month Substance/Drug Use: never 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 Female Reproductive History: Spontaneous abortions: No Physical Exam Const: COMMON NORMALS: no acute distress, patient oriented x3, no limitations and alert GENERAL APPEARANCE: cooperative and comfortable NUTRITIONAL APPEARANCE: obese morbidly obese HENMT: COMMON NORMALS: normocephalic and atraumatic HEAD & SCALP: normocephalic and atraumatic Eye: COMMON NORMALS: EOMs intact bilaterally and conjunctivae normal CONJUNCTIVA: Yes conjunctivae normal Neck/C-Spine: COMMON NORMALS: full ROM Resp: COMMON NORMALS: normal respiratory effort, No use of accessory muscles and clear to auscultation bilaterally AUSCULTATION: clear to auscultation bilaterally Cardio: COMMON NORMALS: regular rate, regular rhythm, No gallops present (Cardio), No murmurs present (Cardio) and No rub (Cardio) RATE: regular rate RHYTHM: regular rhythm Extremity: NARRATIVE EXTREMITY EXAM: Tender to palpation over the right lateral hip joint, no bruising or deformity noted. She does have tenderness palpation along the lateral thigh. Additionally, tender to palpation over the tibial tubercle. No appreciable joint effusion. No joint laxity. Testing somewhat limited due to patient's body habitus. Neuro: COMMON NORMALS: patient oriented x3, moves all extremities, no focal motor deficits and no sensory deficits noted SENSORIUM/ORIENTATION: Yes alert Psych: COMMON NORMALS: mental status grossly normal Skin: COMMON NORMALS: no rashes or lesions noted GENERAL SKIN EXAM: no rashes or lesions noted Course Vital Signs: Vital signs: Vital Signs Temperature 98.3 F 08/24/23 19:21 Pulse Rate 72 08/24/23 21:23 Respiratory Rate 19 H 08/24/23 21:23 Blood Pressure 125/80 08/24/23 21:23 Pulse Oximetry 96 08/24/23 21:23 Oxygen Delivery Me thod Room Air 08/24/23 19:46 MDM - Extremity (Nontraumatic) Medical Decision Making Patient presented for acute onset of right hip pain radiating down to the knee. This was nontraumatic in onset. She had tenderness to palpation about the right lateral hip joint, though there was no obvious deformity or signs of trauma. X-ray of the hip revealed some osteoarthritis, as well as the knee x-ray. Patient did note improvement of her pain after receiving Toradol, and I will send home with a short prescription to be taken with a short course of steroids. She is also given a shot of Decadron prior to discharge. She will follow-up with primary care for further outpatient management of her arthritis, and reasons to return discussed. Lab Data Radiology Impressions Hip/Pelvis X-Ray 08/24/23 19:43 IMPRESSION: Mild right hip and right sacroiliac joint osteoarthritis. No fracture or destructive lesion. Knee X-Ray 08/24/23 19:43 IMPRESSION: No acute bony injury. Mild to moderate tricompartmental osteoarthritis. All radiology interpretation(s) finalized by discharge Discharge Plan Discharge Patient Disposition: Home Clinical Impression: Arthritis of right hip Condition: Stable Prescriptions: New prednisone 20 mg tablet 60 mg PO ONCE 5 Days Qty: 15 0RF ketorolac 10 mg tablet 10 mg PO Q8H PRN (Reason: pain) Qty: 15 0RF No Action albuterol sulfate [Ventolin HFA] 90 mcg/actuation HFA aerosol inhaler 2 puff inhalation Q6H PRN (Reason: shortness of breath or wheezing) Qty: 8.5 0RF mupirocin 2 % ointment 1 applic topical BID Qty: 15 0RF multivitamin Tablet 1 tab PO DAILY bupropion HCl 300 mg tablet extended release 24 hr 300 mg PO QAM Qty: 90 1RF amlodipine 5 mg tablet See Rx Instructions .ROUTE .COMPLEX Qty: 90 1RF Dose Instruction: TAKE 1 TABLET BY MOUTH EVERY DAY Rx Instructions: TAKE 1 TABLET BY MOUTH EVERY DAY 24 Hour Allergy Relief 50 mcg/actuation spray,suspension 2 spray intranasal Q12H PRN (Reason: allergies) Qty: 15.8 0RF Rx Instructions: administer into each nostril omeprazole 40 mg capsule,delayed release(DR/EC) See Rx Instructions .ROUTE .COMPLEX Qty: 90 1RF Hold Instructions: Resume on 06/12/22. Dose Instruction: TAKE 1 CAPSULE BY MOUTH EVERY DAY Rx Instructions: TAKE 1 CAPSULE BY MOUTH EVERY DAY metformin 500 mg tablet extended release 24 hr See Rx Instructions .ROUTE .COMPLEX Qty: 90 1RF Dose Instruction: TAKE 1 TABLET BY MOUTH EVERY DAY Rx Instructions: TAKE 1 TABLET BY MOUTH EVERY DAY meloxicam 15 mg tablet See Rx Instructions .ROUTE .COMPLEX Qty: 90 1RF Dose Instruction: TAKE 1 TABLET BY MOUTH EVERY DAY Rx Instructions: TAKE 1 TABLET BY MOUTH EVERY DAY furosemide 20 mg tablet See Rx Instructions .ROUTE .COMPLEX Qty: 90 0RF Dose Instruction: TAKE 1 TABLET BY MOUTH EVERY DAY IN THE MORNING Rx Instructions: TAKE 1 TABLET BY MOUTH EVERY DAY IN THE MORNING lisinopril 40 mg tablet See Rx Instructions .ROUTE .COMPLEX Qty: 90 0RF Dose Instruction: TAKE 1 TABLET BY MOUTH EVERY DAY IN THE MORNING Rx Instructions: TAKE 1 TABLET BY MOUTH EVERY DAY IN THE MORNING acetaminophen [Tylenol] 325 mg Tablet 325 mg PO QID PRN (Reason: Pain) diphenhydramine HCl 50 mg capsule 50 mg PO .qhs PRN (Reason: allergies drainage) Discharge Orders: Discharge ED (Routine); Ordered 08/24/23 Ordered By: Carl Quiroga Referrals: Leona Colin DO [Primary Care Provider] - Discharge Diet: Usual diet Discharge Activity: Increase activity as tolerated Patient Instructions: Arthritis (ED) Activity Restrictions/Additional Instructions: Prednisone as prescribed. Take Toradol. Gentle range of motion exercises as tolerated. Please follow-up with your primary provider. Return with any new or worsening. 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 [employer] Documented by User: Hill Matos DO 08/28/23 15:16 HPI - Extremity Problem General: Chief complaint: Extremity Problem,Nontraumatic Stated complaint: Hip\Knee Pain Rt Side Time Seen by Provider: 08/24/23 19:16 PFSH ED PFSH: Medical History Allergic pharyngitis Allergic rhinitis due to allergen Esophageal obstruction due to food impaction Leiomyoma of uterus Prediabetes History of COVID-19 Hidradenitis suppurativa Surgical History History of esophagogastroduodenoscopy (EGD) S/P laparoscopic hysterectomy Mar 2021 History of tonsillectomy and adenoidectomy H/O tubal ligation Family History Daughter Bleeding disorder lupus Father Cancer esophageal Mother Cancer skin Breast cancer Thyroid disease Family/Other Breast cancer Maternal aunt Grandfather Stroke Paternal Other Glaucoma Lupus Denies family history of Diabetes CAD (coronary artery disease) Clotting disorder Hyperlipidemia Chronic kidney disease (CKD) Hypertension Social History Smoking and tobacco/nicotine status: never used tobacco/nicotine Alcohol intake: current Alcohol intake frequency: few times a month Substance/Drug Use: never 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 This was nontraumatic in onset. She had tenderness to palpation about the right lateral hip joint, though there was no obvious deformity or signs of trauma. X-ray of the hip revealed some osteoarthritis, as well as the knee x-ray. Patient did note improvement of her pain after receiving Toradol, and I will send home with a short prescription to be taken with a short course of steroids. She is also given a shot of Decadron prior to discharge. She will follow-up with primary care for further outpatient management of her arthritis, and reasons to return discussed. Chart reviewed Lab Data Radiology Impressions Hip/Pelvis X-Ray 08/24/23 19:43 IMPRESSION: Mild right hip and right sacroiliac joint osteoarthritis. No fracture or destructive lesion. Knee X-Ray 08/24/23 19:43 IMPRESSION: No acute bony injury. Mild to moderate tricompartmental osteoarthritis. Discharge Plan Discharge Patient Disposition: Home Clinical Impression: Arthritis of right hip Condition: Stable Prescriptions: New prednisone 20 mg tablet 60 mg PO ONCE 5 Days Qty: 15 0RF ketorolac 10 mg tablet 10 mg PO Q8H PRN (Reason: pain) Qty: 15 0RF No Action albuterol sulfate [Ventolin HFA] 90 mcg/actuation HFA aerosol inhaler 2 puff inhalation Q6H PRN (Reason: shortness of breath or wheezing) Qty: 8.5 0RF mupirocin 2 % ointment 1 applic topical BID Qty: 15 0RF multivitamin Tablet 1 tab PO DAILY bupropion HCl 300 mg tablet extended release 24 hr 300 mg PO QAM Qty: 90 1RF amlodipine 5 mg tablet See Rx Instructions .ROUTE .COMPLEX Qty: 90 1RF Dose Instruction: TAKE 1 TABLET BY MOUTH EVERY DAY Rx Instructions: TAKE 1 TABLET BY MOUTH EVERY DAY 24 Hour Allergy Relief 50 mcg/actuation spray,suspension 2 spray intranasal Q12H PRN (Reason: allergies) Qty: 15.8 0RF Rx Instructions: administer into each nostril omeprazole 40 mg capsule,delayed release(DR/EC) See Rx Instructions .ROUTE .COMPLEX Qty: 90 1RF Hold Instructions: Resume on 06/12/22. Dose Instruction: TAKE 1 CAPSULE BY MOUTH EVERY DAY Rx Instructions: TAKE 1 CAPSULE BY MOUTH EVERY DAY metformin 500 mg tablet extended release 24 hr See Rx Instructions .ROUTE .COMPLEX Qty: 90 1RF Dose Instruction: TAKE 1 TABLET BY MOUTH EVERY DAY Rx Instructions: TAKE 1 TABLET BY MOUTH EVERY DAY meloxicam 15 mg tablet See Rx Instructions .ROUTE .COMPLEX Qty: 90 1RF Dose Instruction: TAKE 1 TABLET BY MOUTH EVERY DAY Rx Instructions: TAKE 1 TABLET BY MOUTH EVERY DAY furosemide 20 mg tablet See Rx Instructions .ROUTE .COMPLEX Qty: 90 0RF Dose Instruction: TAKE 1 TABLET BY MOUTH EVERY DAY IN THE MORNING Rx Instructions: TAKE 1 TABLET BY MOUTH EVERY DAY IN THE MORNING lisinopril 40 mg tablet See Rx Instructions .ROUTE .COMPLEX Qty: 90 0RF Dose Instruction: TAKE 1 TABLET BY MOUTH EVERY DAY IN THE MORNING Rx Instructions: TAKE 1 TABLET BY MOUTH EVERY DAY IN THE MORNING acetaminophen [Tylenol] 325 mg Tablet 325 mg PO QID PRN (Reason: Pain) diphenhydramine HCl 50 mg capsule 50 mg PO .qhs PRN (Reason: allergies drainage) Discharge Orders: Discharge ED (Routine); Ordered 08/24/23 Ordered By: Carl Quiroga Referrals: Leona Colin DO [Primary Care Provider] - Discharge Diet: Usual diet Discharge Activity: Increase activity as tolerated Patient Instructions: Arthritis (ED) Activity Restrictions/Additional Instructions: Prednisone as prescribed. Take Toradol. Gentle range of motion exercises as tolerated. Please follow-up with your primary provider. Return with any new or worsening. 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
[2023-08-24] MEDS: methocarbamol 750 mg Tablet PO (19:53)
[2023-08-24] MEDS: ketorolac 60 mg/2 mL INJ IM (19:54)
[2023-08-24] MEDS: dexamethasone 10 mg/mL INJ IM (21:18)
[2023-08-24 21:23] VITALS: BP 125/80; PULSE 72; RESP 19; O2SAT 96
== END 2023-08-24 21:26 | disposition home or self-care (01) ==
PROVIDERS: Emergency Provider Physician Assistant; PCP Family Medicine
DX: M16.11 Unilateral primary osteoarthritis, right hip (principal); Z79.84 Long term (current) use of oral hypoglycemic drugs
CPT/HCPCS: 73502; 73562; 96372; 99284; J1100; J1885

== ENCOUNTER → 2023-10-27 07:55 | Outpatient (BNVA) | payer BC, SELFPAY | PROVIDERS: PCP Family Medicine Adult Medicine; Visit Provider Family Medicine Adult Medicine | DX: I10 Essential (primary) hypertension (principal); E11.9 Type 2 diabetes mellitus without complications | CPT/HCPCS: 80053; 80061; 83036; 84443; 85025 ==

== ENCOUNTER 2023-11-10 07:54 | Outpatient (CLI) | payer BC, SELFPAY ==
--- NOTE | 2023-11-10 08:00 | MM_ITS ---
WS: [id number] VIEWS: MLO and CC views both breasts. 3D digital tomosynthesis is also included in this exam. Comparison made with prior exam of 09/11/2020 and 04/27/2022.. Findings: There was no sign of mass, architectural distortion or suspicious calcification in either breast. The re are scattered areas of fibroglandular density MM/[place] [id number] Impression: BI-RADS: 2-Benign finding. FOLLOW-UP: 1 Year Follow-up This mammogram was also analyzed by the Computer Aided Detection System [employer]2 [employer]ag e [employer] Sampler.
== END 2023-11-10 07:55 | disposition home or self-care (01) ==
LOC: RAD 07:54
PROVIDERS: PCP Family Medicine Adult Medicine; Visit Provider Family Medicine Adult Medicine
DX: Z12.31 Encounter for screening mammogram for malignant neoplasm of breast (principal); R92.323 Mammographic fibroglandular density, bilateral breasts
CPT/HCPCS: 77063; 77067; 80053; 80061; 83036; 84443; 85025

== ENCOUNTER → 2024-02-08 07:01 | Outpatient (BNVA) | payer BC, SELFPAY | PROVIDERS: PCP Family Medicine Adult Medicine; Visit Provider Podiatrist Foot & Ankle Surgery | DX: M79.672 Pain in left foot (principal); M79.671 Pain in right foot; M72.2 Plantar fascial fibromatosis | CPT/HCPCS: 73630 ==

== ENCOUNTER 2024-02-29 16:10 | Outpatient (CLI) | payer BC, SELFPAY | END 2024-02-29 16:11 | disposition home or self-care (01) | LOC: SPT 16:11 | PROVIDERS: PCP Family Medicine Adult Medicine; Visit Provider Podiatrist Foot & Ankle Surgery | DX: Z46.89 Encounter for fitting and adjustment of other specified devices (principal); M72.2 Plantar fascial fibromatosis | CPT/HCPCS: L4397 ==

== ENCOUNTER 2024-04-17 06:54 | Outpatient (RCR) | payer BC, SELFPAY | END 2024-05-12 23:59 | disposition home or self-care (01) | LOC: SPT 06:54 | PROVIDERS: Visit Provider Podiatrist Foot & Ankle Surgery | DX: M76.22 Iliac crest spur, left hip (principal); M72.2 Plantar fascial fibromatosis; M79.672 Pain in left foot | CPT/HCPCS: 97035; 97110; 97140; 97161 ==

== ENCOUNTER 2024-05-13 06:30 | Outpatient (RCR) | payer BC, SELFPAY | END 2024-05-31 08:25 | disposition home or self-care (01) | LOC: SPT 06:30 | PROVIDERS: Family Provider Family Medicine; Visit Provider Podiatrist Foot & Ankle Surgery | DX: M76.72 Peroneal tendinitis, left leg (principal); M72.2 Plantar fascial fibromatosis | CPT/HCPCS: 97035; 97140 ==

== ENCOUNTER 2024-06-07 09:07 | Outpatient (CLI) | payer BC, SELFPAY ==
[2024-06-07 09:56] LABS: Estmated Average Glucose 148; Hemoglobin A1C 6.8 % (4.0-6.0)
[2024-06-07 09:57] LABS: Alanine Aminotransferase 26 U/L (0-33); Albumin Level 4.1 g/dL (3.5-5.2); Alkaline Phosphatase 120 U/L (35-105); Anion Gap 14.8 (5-19); Aspartate Amino Transferase 17 U/L (0-32); Blood Urea Nitrogen 13 mg/dL (6-20); Calcium 8.9 mg/dL (8.5-10.5); Carbon Dioxide 28 mmol/L (22-29); Chloride 100 mmol/L (98-107); Globulin 3.4 g/dL (1.3-4.6); Glomerular Filtration Rate 129.6 mL/min (90-130); Glucose 122 mg/dL (65-115); Osmolality Calculated 289 mOsm/kg (285-295); Potassium 3.8 mmol/L (3.5-5.1); Sodium 139 mmol/L (136-145); Total Bilirubin 0.3 mg/dL (0.15-1.2); Total Protein 7.5 g/dL (6.6-8.7)
[2024-06-07 10:20] LABS: Creatinine Urine, Random 45 mg/dL (28-217); Microalbum Creatinine Ratio Ur 311 mg/dL (0-20); Microalbumin Random Urine 14 ug/dL (0-20)
== END 2024-06-07 09:08 | disposition home or self-care (01) ==
PROVIDERS: Family Provider Family Medicine; PCP Family Medicine; Visit Provider Family Medicine
DX: E11.9 Type 2 diabetes mellitus without complications (principal)
CPT/HCPCS: 36415; 80053; 82044; 83036

== ENCOUNTER 2024-06-22 14:18 | Outpatient (CLI) | payer BC, SELFPAY ==
--- NOTE | 2024-06-22 15:30 | CT_ITS ---
WS: [id number] CT ABDOMEN AND PELVIS WITH CONTRAST HISTORY: abdominal hernia TECHNIQUE: Imaging performed of the abdomen and pelvis with IV contrast. Single phase imaging of the abdomen. Coronal and sagittal reformats are submitted. All CT scans at [facility] use at least one of these dose optimization techniques: automated exposure control; mA and/or kV adjustment per patient size (includes targeted exams where dose is matched to clinical indication); or iterative reconstruction. IV CONTRAST: Omnipaque 350; 100 mL IV. Oral contrast: Yes. DLP: 1421.31 mGy.cm COMPARISON: None available. Lower thorax: Lung bases are clear. Heart is normal size. Small hiatal hernia. Liver/biliary system: Focal fatty sparing along the falciform ligament. Liver is markedly enlarged with hepatic steatosis. Liver measures 21.6 cm in length. Normal portal vein. Gallbladder: Normal. No gallstones or wall thickening. No pericholecystic fluid. Pancreas: Normal size pancreas and pancreatic duct. No adjacent inflammation. Spleen: Normal size spleen. No mass or infarct. Adrenal glands: Normal. Right kidney: Normal. Left kidney: Normal. Aorta: Normal. Lymphadenopathy: None. Free fluid: None. GI tract: No GI tract obstruction. No appendicitis. Abdominal wall: Thinning of the musculature of the abdominal wall. Mild widening of the rectus sheath. Thinning of the semilunaris but no hernia. Midline infraumbilical incision from prior hysterectomy. No incision hernia. Pelvis: No free fluid or adenopathy within the pelvis. There is a very small amount of soft tissue stranding in the pelvis which I suspect may be artifact due to patient's body habitus. Bones: Unremarkable. CT/CT abdomen pelvis w con* [id number] IMPRESSION: 1. Marked hepatomegaly. Hepatic steatosis with areas of fatty sparing. 2. Thinning of the abdominal wall musculature but no hernia is identified. 3. No renal obstruction. 4. No ascites or adenopathy.
[2024-06-22] MEDS: iohexol 350 mg/mL 500 mL Btl (per mL) PO (15:54)
[2024-06-22] MEDS: iohexol 350 mg/mL 500 mL Btl (per mL) IV (15:54)
== END 2024-06-22 14:19 | disposition home or self-care (01) ==
LOC: RAD 14:19
PROVIDERS: Family Provider Family Medicine; PCP Family Medicine; Visit Provider Family Medicine
DX: K43.9 Ventral hernia without obstruction or gangrene (principal); R16.0 Hepatomegaly, not elsewhere classified; K76.0 Fatty (change of) liver, not elsewhere classified; R93.5 Abnormal findings on diagnostic imaging of other abdominal regions, including retroperitoneum; Z98.890 Other specified postprocedural states
CPT/HCPCS: 74177

== ENCOUNTER → 2024-09-25 08:26 | Outpatient (BNVA) | payer BC, SELFPAY | PROVIDERS: Family Provider Family Medicine; PCP Family Medicine; Visit Provider Family Medicine | DX: E11.9 Type 2 diabetes mellitus without complications (principal) | CPT/HCPCS: 80053; 83036 ==

== ENCOUNTER 2024-12-20 09:00 | Outpatient (CLI) | payer BC, SELFPAY ==
--- NOTE | 2024-12-20 09:00 | MM_ITS ---
WS: [id number] BILATERAL SCREENING DIGITAL TOMOSYNTHESIS MAMMOGRAM WITH CAD HISTORY: SCREENING COMPARISON: 11/10/2023, 04/27/2022, 09/11/2020 Bilateral CC and MLO views with tomosynthesis and synthetic mammography submitted. Computer aided detection analyzed. Breast composition: There are scattered areas of fibroglandular density. No suspicious masses, microcalcifications or architectural distortion. Quality of this examination is compromised by difficulty positioning patient. Pectoralis muscles have not been included. MM/MM scr tomosynthesis [id number] IMPRESSION: BI-RADS: 2 - Benign. FOLLOW UP: 1 Year Follow-up
== END 2024-12-20 09:01 | disposition home or self-care (01) ==
LOC: MOBLMAM 09:02
PROVIDERS: Family Provider Family Medicine; PCP Family Medicine; Visit Provider Family Medicine
DX: Z12.31 Encounter for screening mammogram for malignant neoplasm of breast (principal); R92.323 Mammographic fibroglandular density, bilateral breasts
CPT/HCPCS: 77063; 77067

== ENCOUNTER → 2024-12-26 08:37 | Outpatient (BNVA) | payer BC, SELFPAY | PROVIDERS: Family Provider Family Medicine; PCP Family Medicine; Visit Provider Family Medicine | DX: E11.9 Type 2 diabetes mellitus without complications (principal) | CPT/HCPCS: 80053; 80061; 83036; 85025 ==